=== PATIENT | female | born 1990 | race Caucasian/White ===

== ENCOUNTER 2019-03-11 17:01 | Emergency (ER) | payer OTHER ==
[2019-03-11 17:08] VITALS: BP 106/72
[2019-03-11] MEDS ORDERED: ONDANSETRON ODT 4 MG TABLET TL STA (17:36)
--- NOTE | 2019-03-11 17:39 | ED Physician Documentation ---
History of Present Illness - Stated complaint Stated Complaint: FEVER/VOMITING/AB PX - Chief complaint Chief Complaint: General - History obtained from History obtained from: Patient - History of Present Illness Timing: Today Pain level max: 4 Pain level now: 3 - Additonal information Additional information: 28-year-old female presents to the emergency department with vomiting today. Also a fever of 101 at home. Has a 2 and a 5-year-old at home. The 2-year-old had vomiting a few days ago followed by diarrhea. Nothing makes it better or worse. No recent travel, no recent abx. She is not having diarrhea currently Review of Systems Constitutional: reports: Fever Respiratory: denies: Cough GI: reports: Abdominal Pain (Crampy, diffuse), Nausea, Vomiting. denies: Diarrhea : denies: Dysuria, Frequency, Hesitancy Skin: denies: Rash Musculoskeletal: denies: Neck pain, Back pain PD PAST MEDICAL HISTORY - Past Medical History Past Medical History: No - Past Surgical History Past Surgical History: No - Present Medications Home Medications: Ambulatory Orders Medication Instructions Recorded Confirmed Ondansetron Odt [Zofran] 4 mg TL Q6H PRN #10 tablet 03/11/19 - Allergies Allergies/Adverse Reactions: Allergies Allergy/AdvReac Type Severity Reaction Status Date / Time No Known Drug Allergies Allergy Verified 03/11/19 17:08 - Living Situation Living Situation: reports: With family Living Arrangement: reports: At home - Social History Does the pt smoke?: No Does the pt have substance abuse?: No - Family History Family history: reports: Non contributory - Immunizations Immunizations are current?: Yes PD ED PE NORMAL - Vitals Vital signs reviewed: Yes - General General: Alert and oriented X 3, No acute distress, Well developed/nourished - HEENT HEENT: PERRL, Moist mucous membranes - Neck Neck: Supple, no meningeal sign - Cardiac Cardiac: RRR, Strong equal pulses - Respiratory Respiratory: No respiratory distress, Clear bilaterally - Abdomen Abdomen: Soft, Non tender, Non distended - Back Back: No CVA TTP, No spinal TTP - Derm Derm: Warm and dry - Extremities Extremities: No edema - Neuro Neuro: Alert and oriented X 3 - Psych Psych: Normal mood, Normal affect Results - Vitals Vitals: Vital Signs - 24 hr 03/11/19 17:04 Temperature 37.8 C H Heart Rate 96 Respiratory 16 Rate Blood Pressure 106/72 O2 Saturation 100 Oxygen O2 Source Room air - Labs Labs: Laboratory Tests 03/11/19 17:36 Urine Color YELLOW Urine Clarity CLEAR Urine pH 6.5 Ur Specific [place] 1.020 Urine Protein NEGATIVE Urine Glucose (UA) NEGATIVE Urine Ketones NEGATIVE Urine Occult Blood MODERATE H Urine Nitrite NEGATIVE Urine Bilirubin NEGATIVE Urine Urobilinogen 0.2 (NORMAL) Ur Leukocyte Esterase NEGATIVE Urine RBC 11-25 H Urine WBC 0-3 Ur Squamous Epith Cells RARE Squamous Urine Bacteria None Seen Ur Microscopic Review INDICATED Urine Culture Comments NOT INDICATED Urine HCG, Qual NEGATIVE PD MEDICAL DECISION MAKING - ED course Complexity details: reviewed results, re-evaluated patient, considered differential, d/w patient ED course: 28-year-old female, feels better after Zofran. Tolerating p.o. without difficulty. Likely caught this from her 2-year-old child. Abdomen is soft, nontender nondistended. No evidence of appendicitis, pyelonephritis. Patient counseled regarding signs and symptoms for which I believe and urgent re- evaluation would be necessary. Patient with good understanding of and agreement to plan and is comfortable going home at this time This document was made in part using voice recognition software. While efforts are made to proofread this document, sound alike and grammatical errors may occur. Departure - Departure Disposition: 01 Home, Self Care Clinical Impression: Viral gastroenteritis Condition: Good Instructions: ED Viral Syndrome Follow-Up: your,doctor in 3 days if not better [Other] Prescriptions: Ondansetron Odt [Zofran] 4 mg TL Q6H PRN #10 tablet PRN Reason: Nausea / Vomiting Comments: Follow-up with your doctor within 1 week if not better. Return if you worsen. Drink plenty fluids and rest. I suspect that you will start to have diarrhea tomorrow. Discharge Date/Time: 03/11/19 18:15
[2019-03-11 17:47] LABS: BILIRUBIN,URINE NEGATIVE (NEGATIVE); GLUCOSE, URINE (UA) NEGATIVE (NEGATIVE); KETONES,URINE (UA) NEGATIVE (NEGATIVE); LEUKOCYTE ESTERASE, URINE NEGATIVE (NEGATIVE); NITRITE,URINE NEGATIVE (NEGATIVE); OCCULT BLOOD,URINE MODERATE (NEGATIVE); PH,URINE 6.5 PH (5.0-7.5); PROTEIN,URINE NEGATIVE (NEGATIVE); UROBILINOGEN,URINE 0.2 (NORMAL) E.U./dL (NORMAL)
[2019-03-11 17:50] LABS: CLARITY,URINE CLEAR (CLEAR); HCG UR QUAL NEGATIVE
[2019-03-11 18:03] LABS: BACTERIA,URINE None Seen /HPF (None Seen); SQUAMOUS EPITHELIAL CELL,UR RARE Squamous (<= Few)
== END 2019-03-11 18:15 | disposition home or self-care (01) ==
LOC: ED 17:01
DX: A08.4 Viral intestinal infection, unspecified (principal)
CPT/HCPCS: 81001; 81025; 99283; Q0162; 81003; 87086

== ENCOUNTER 2019-03-23 22:14 | Outpatient (CLI) | payer OTHER ==
--- NOTE | 2019-03-24 12:02 | Ultrasound Report ---
Reason: PELVIC PAIN,ACUTE Procedure Date: 03/23/2019 Accession Number: [id number] / [id number] Procedure: US - Pelvic w/Transvaginal CPT Code: FULL RESULT: EXAM: PELVIC ULTRASOUND EXAM DATE: 03/23/2019 11:09 PM. CLINICAL HISTORY: Pelvic pain, acute. COMPARISON: None. TECHNIQUE: Realtime transabdominal pelvic scan performed to identify the uterus and adnexa and as an overview of other pelvic structures, followed by transvaginal scan to provide greater detail of the uterus and adnexa, with static image documentation. FINDINGS: Uterus: 8.3 x 5.8 x 4.5 cm, volume 113 cc. Anteverted position. Normal overall size and echotexture. Prominent uterine venous plexus was noted. Masses: None. Endometrium: 10 mm. Normal. Cervix: Unremarkable. Right Ovary: 3.5 x 2.3 x 2.3 cm, volume 9.6 cc. Normal echotexture and blood flow. Complex cyst measuring with irregular outline, suggestion of collapse measuring 1.5 x 0.9 x 0.9 cm was noted. Left Ovary: 3.2 x 1.4 x 1.8 cm, volume 4.2 cc. Normal echotexture and blood flow. Free Fluid: Small amount of free fluid. Other: None. IMPRESSION: Complex irregular-shaped cyst within the right ovary and a small amount of free fluid, possibly recent cyst rupture. RADIA ADDENDUM: 03/24/19 12:22 The uterus is retroverted.
== END 2019-03-23 22:15 | disposition home or self-care (01) ==
LOC: DI 22:14
PROVIDERS: ATTEND Registered Nurse
DX: N83.291 Other ovarian cyst, right side (principal); N85.4 Malposition of uterus
CPT/HCPCS: 76830; 76856

== ENCOUNTER 2019-08-31 10:00 | Outpatient (CLI) | payer OTHER | END 2019-08-31 23:59 | disposition home or self-care (01) | LOC: LAB.R 10:00 | PROVIDERS: ATTEND Physician Assistant | DX: J02.9 Acute pharyngitis, unspecified (principal) | CPT/HCPCS: 87070; 87077; 87275; 87276 ==

== ENCOUNTER 2019-11-19 14:34 | Outpatient (CLI) | payer OTHER ==
[2019-11-19 18:55] LABS: HGB - HEMOGLOBIN 12.6 g/dL (12.0-16.0); MEAN CORPUSCULAR HEMOGLOBIN 30.7 pg (27.0-31.0); MEAN CORPUSCULAR HGB CONC 33.2 g/dL (32.0-36.0); MEAN CORPUSCULAR VOLUME 92.2 fL (81.0-99.0); MEAN PLATELET VOLUME 11.3 fL (7.9-10.8); RED BLOOD COUNT 4.11 10^6/uL (4.20-5.40); RED CELL DISTRIBUTION WIDTH 12.6 % (12.0-15.0); WHITE BLOOD COUNT 7.5 x10^3/uL (4.8-10.8)
[2019-11-19 19:26] LABS: ALBUMIN 4.3 g/dL (3.2-5.5); ALBUMIN/GLOBULIN RATIO 1.5 (1.0-2.2); ALKALINE PHOSPHATASE 33 IU/L (42-121); ALT ALANINE AMINOTRANSFERASE 12 IU/L (10-60); AST ASPARTATE AMINOTRANSFERASE 17 IU/L (10-42); BILIRUBIN,TOTAL 0.9 mg/dL (0.2-1.0); BUN - BLOOD UREA NITROGEN 11 mg/dL (6-20); CALCIUM 9.1 mg/dL (8.5-10.3); CARBON DIOXIDE - CO2 25 mmol/L (21-32); CHLORIDE 106 mmol/L (101-111); CREATININE 0.7 mg/dL (0.4-1.0); GFR - MDRD 99 (>89); GLUCOSE 76 mg/dL (70-100); SODIUM 138 mmol/L (135-145); TOTAL PROTEIN 7.1 g/dL (6.7-8.2); URIC ACID 2.8 mg/dL (2.6-7.2)
[2019-11-19 19:34] LABS: CRP - C-REACTIVE PROTEIN < 1.0 mg/dL (0-1.0)
== END 2019-11-19 23:59 | disposition home or self-care (01) ==
LOC: LAB.WCP 14:34
PROVIDERS: ATTEND Family Medicine
DX: M25.50 Pain in unspecified joint (principal)
CPT/HCPCS: 36415; 80053; 84550; 85027; 85651; 86140

== ENCOUNTER 2019-12-08 08:00 | Outpatient (CLI) | payer OTHER ==
[2019-12-10 20:29] LABS: B. PARAPERTUSSIS DNA NOT DETECTED; SOURCE SWAB
== END 2019-12-08 23:59 | disposition home or self-care (01) ==
LOC: LAB.R 08:00
PROVIDERS: ATTEND Physician Assistant Medical
DX: J01.90 Acute sinusitis, unspecified (principal)
CPT/HCPCS: 87798

== ENCOUNTER 2019-12-09 07:41 | Outpatient (CLI) | payer OTHER | END 2019-12-09 07:42 | disposition EMS.NT | LOC: EMS 07:41 | PROVIDERS: ATTEND Surgery | DX: R00.2 Palpitations (principal); R06.00 Dyspnea, unspecified ==

== ENCOUNTER 2019-12-09 08:52 | Emergency (ER) | payer OTHER ==
[2019-12-09] MEDS ORDERED: SODIUM CHLORIDE 0.9% 999 ML IV STA (09:01)
[2019-12-09] MEDS ORDERED: MORPHINE 2 MG/ML CARPUJECT IVP STA (09:01)
[2019-12-09] MEDS ORDERED: ONDANSETRON 4 MG/2 ML VIAL IVP STA (09:02)
[2019-12-09 09:24] LABS: BASOPHILS % (AUTO) 0.5 %; EOSINOPHILS % (AUTO) 0.5 %; HGB - HEMOGLOBIN 12.2 g/dL (12.0-16.0); LYMPHOCYTES # (AUTO) 0.8 10^3/uL (1.5-3.5); LYMPHOCYTES % (AUTO) 21.9 %; MEAN CORPUSCULAR HEMOGLOBIN 31.7 pg (27.0-31.0); MEAN CORPUSCULAR HGB CONC 34.3 g/dL (32.0-36.0); MEAN CORPUSCULAR VOLUME 92.5 fL (81.0-99.0); MEAN PLATELET VOLUME 9.7 fL (7.9-10.8); MONOCYTES # (AUTO) 0.3 10^3/uL (0.0-1.0); MONOCYTES % (AUTO) 7.1 %; NEUTROPHILS # (AUTO) 2.5 10^3/uL (1.5-6.6); NEUTROPHILS % (AUTO) 69.7 %; PLT - PLATELET COUNT 183 10^3/uL (130-450); RED BLOOD COUNT 3.85 10^6/uL (4.20-5.40); RED CELL DISTRIBUTION WIDTH 12.1 % (12.0-15.0); WHITE BLOOD COUNT 3.7 x10^3/uL (4.8-10.8)
--- NOTE | 2019-12-09 09:24 | ED Physician Documentation ---
History of Present Illness - Stated complaint Stated Complaint: RHR - Chief complaint Chief Complaint: Cardiac - History obtained from History obtained from: Patient (28-year-old female generally healthy presented emergency room with shortness of breath that is associated with fast heart rate in the 120s that dropped down to the 50s. Patient has been taking Augmentin for sinus infection for last 4 days. Started this morning she has not been feeling well and check her Apple Watch, initially the heart rate was 120s and it dropped down to the 50s. As it dropped down, she feel shortness of breath, no nausea no vomiting. No syncope episode. Upon detailed questioning, she has not been feeling well for last 4 days coincidentally with the sinus infection, she also feels back pain and very mild chest discomfort that rated 3 out of 10.No long distance travel, no previous history of PE, no DVT in the past, not on control, cigarette smoking was 10 years ago) - History of Present Illness Timing: How many days ago (4) Review of Systems Ten Systems: 10 systems reviewed and negative Constitutional: reports: Reviewed and negative Eyes: reports: Reviewed and negative Ears: reports: Reviewed and negative Nose: reports: Reviewed and negative Throat: reports: Reviewed and negative Cardiac: reports: Chest pain / pressure, Palpitations Respiratory: reports: Dyspnea. denies: Hemoptysis GI: reports: Reviewed and negative : reports: Reviewed and negative Skin: reports: Reviewed and negative Musculoskeletal: reports: Reviewed and negative Neurologic: reports: Reviewed and negative Psychiatric: reports: Reviewed and negative Endocrine: reports: Reviewed and negative Immunocompromised: reports: Reviewed and negative PD PAST MEDICAL HISTORY - Past Medical History Past Medical History: No - Past Surgical History Past Surgical History: No - Present Medications Home Medications: Ambulatory Orders Medication Instructions Recorded Confirmed Ondansetron Odt [Zofran] 4 mg TL Q6H PRN #10 tablet 03/11/19 - Allergies Allergies/Adverse Reactions: Allergies Allergy/AdvReac Type Severity Reaction Status Date / Time No Known Drug Allergies Allergy Verified 03/11/19 17:08 - Social History Does the pt smoke?: No Smoking Status: Never smoker Does the pt drink ETOH?: Yes Does the pt have substance abuse?: No - Immunizations Immunizations are current?: Yes PD ED PE NORMAL - Vitals Vital signs reviewed: Yes - General General: Alert and oriented X 3, No acute distress - HEENT HEENT: PERRL - Neck Neck: Supple, no meningeal sign, No bony TTP, No adenopathy - Cardiac Cardiac: RRR, No murmur, No gallop, Strong equal pulses - Respiratory Respiratory: No respiratory distress, Clear bilaterally - Abdomen Abdomen: Normal bowel sounds, Soft, Non tender, Non distended - Back Back: No CVA TTP, No spinal TTP - Derm Derm: Warm and dry - Extremities Extremities: No deformity - Neuro Neuro: Alert and oriented X 3 - Psych Psych: Normal mood, Normal affect Results - Vitals Vitals: Vital Signs - 24 hr 12/09/19 12/09/19 12/09/19 09:00 09:07 10:14 Temperature 36.4 C L Heart Rate 73 71 69 Respiratory 18 16 13 Rate Blood Pressure 128/83 H 114/81 H 103/69 O2 Saturation 95 100 100 12/09/19 12:07 Temperature 36.9 C Heart Rate 72 Respiratory 12 Rate Blood Pressure 112/73 O2 Saturation 100 Oxygen O2 Source Room air - EKG (time done) No standard instances Rate: Rate (enter#) (67) Rhythm: NSR [place]: Normal Intervals: Normal [place] QRS: Normal Ischemia: Normal ST segments - Labs Labs: Laboratory Tests 12/09/19 12/09/19 12/09/19 09:15 09:15 09:15 WBC 3.7 L RBC 3.85 L Hgb 12.2 Hct 35.6 L MCV 92.5 MCH 31.7 H MCHC 34.3 RDW 12.1 Plt Count 183 MPV 9.7 Neut # (Auto) 2.5 Lymph # (Auto) 0.8 L [place] # (Auto) 0.3 Eos # (Auto) 0.0 Baso # (Auto) 0.0 Absolute Nucleated RBC 0.00 Nucleated RBC % 0.0 PT 13.9 H INR 1.2 APTT 32.2 D-Dimer < 200.0 L Sodium 139 Potassium 4.0 Chloride 103 Carbon Dioxide 26 Anion Gap 10.0 BUN 9 Creatinine 0.7 Estimated GFR (MDRD) 99 Glucose 94 Calcium 8.8 Total Bilirubin 1.5 H AST 14 ALT 10 Alkaline Phosphatase 33 L Troponin I High Sens B-Natriuretic Peptide Total Protein 6.6 L Albumin 4.1 Globulin 2.5 Albumin/Globulin Ratio 1.6 Lipase 29 Urine Color Urine Clarity Urine pH Ur Specific [place] Urine Protein Urine Glucose (UA) Urine Ketones Urine Occult Blood Urine Nitrite Urine Bilirubin Urine Urobilinogen Ur Leukocyte Esterase Ur Microscopic Review Urine Culture Comments Urine HCG, Qual 12/09/19 12/09/19 12/09/19 09:15 09:15 11:26 WBC RBC Hgb Hct MCV MCH MCHC RDW Plt Count MPV Neut # (Auto) Lymph # (Auto) [place] # (Auto) Eos # (Auto) Baso # (Auto) Absolute Nucleated RBC Nucleated RBC % PT INR APTT D-Dimer Sodium Potassium Chloride Carbon Dioxide Anion Gap BUN Creatinine Estimated GFR (MDRD) Glucose Calcium Total Bilirubin AST ALT Alkaline Phosphatase Troponin I High Sens < 2.3 L B-Natriuretic Peptide 16 Total Protein Albumin Globulin Albumin/Globulin Ratio Lipase Urine Color YELLOW Urine Clarity CLEAR Urine pH 7.0 Ur Specific [place] <=1.005 Urine Protein NEGATIVE Urine Glucose (UA) NEGATIVE Urine Ketones 15 H Urine Occult Blood NEGATIVE Urine Nitrite NEGATIVE Urine Bilirubin NEGATIVE Urine Urobilinogen 0.2 (NORMAL) Ur Leukocyte Esterase NEGATIVE Ur Microscopic Review NOT INDICATED Urine Culture Comments NOT INDICATED Urine HCG, Qual NEGATIVE - Rads (name of study) No standard instances Radiology: Final report received (Normal chest x-ray) PD MEDICAL DECISION MAKING - ED course Complexity details: d/w patient, d/w family ED course: Patient is reassessed at 12:00 and disclosed normal laboratory finding including electrolyte, CBC, chemistry, thyroid function, magnesium level, everything seems to be normal. I am not sure the Etiology of thetransient tachycardic episode that developed just prior to arrival.Over last 3 hours, patient has been monitor and there is no such event. This is disclosed to the patient. She is assured. She is been initiated on Augmentin for sinusitis, I told her to continue finishing the course and monitor the heart rate. She understood and agreed. She is asked to follow with her primary care doctor in the next 5 to 7 days for reassessment. If there is another episode of tachycardia, return to the emergency room for further management. Departure - Departure Disposition: 01 Home, Self Care Clinical Impression: Tachycardia, paroxysmal Condition: Stable Instructions: Tachycardia Follow-Up: Caitlyn Corral PA [Primary Care Provider] - Comments: Please continue monitoring your heart rate. Resume your Augmentin. Follow-up with your primary care doctor. If there is further episodes of fast heartbeat, please return to the emergency room for further evaluation.
[2019-12-09 09:34] LABS: D-DIMER < 200.0 ng/mL (200.0-255.0)
[2019-12-09 09:36] LABS: ALBUMIN 4.1 g/dL (3.2-5.5); ALBUMIN/GLOBULIN RATIO 1.6 (1.0-2.2); BILIRUBIN,TOTAL 1.5 mg/dL (0.2-1.0); CALCIUM 8.8 mg/dL (8.5-10.3); CREATININE 0.7 mg/dL (0.4-1.0); TOTAL PROTEIN 6.6 g/dL (6.7-8.2)
[2019-12-09 09:38] LABS: INR 1.2 (0.8-1.2); PT - PROTHROMBIN TIME 13.9 secs (9.9-12.6)
[2019-12-09 09:47] LABS: PARTIAL THROMBOPLASTIN TIME 32.2 secs (24.9-33.3)
--- NOTE | 2019-12-09 10:01 | XRAY Report ---
Reason: palpitation Procedure Date: 12/09/2019 Accession Number: [id number] / [id number] Procedure: XR - Chest 2 View X-Ray CPT Code: 11359 Final Report FULL RESULT: EXAM: CHEST RADIOGRAPHY EXAM DATE: 12/09/2019 09:38 AM. CLINICAL HISTORY: Palpitation. COMPARISON: None. TECHNIQUE: 2 views. FINDINGS: Lungs/Pleura: No evidence of lobar consolidation or effusion. Lungs are well expanded. There is a 1.0 cm focal opacity projecting over the left anterior fourth rib. No pneumothorax. Mediastinum: Heart and mediastinal contours are unremarkable. Other: None. IMPRESSION: 1. Normal lung volumes and heart size. 2. No acute intrathoracic plain film abnormality. 3. On frontal view, is a 1 cm focal opacity projecting over the left anterior fourth rib. This probably represents granuloma, bone island, or something extrinsic to the patient. RADIA
[2019-12-09 11:45] LABS: BILIRUBIN,URINE NEGATIVE (NEGATIVE); GLUCOSE, URINE (UA) NEGATIVE (NEGATIVE); KETONES,URINE (UA) 15 mg/dL (NEGATIVE); LEUKOCYTE ESTERASE, URINE NEGATIVE (NEGATIVE); NITRITE,URINE NEGATIVE (NEGATIVE); OCCULT BLOOD,URINE NEGATIVE (NEGATIVE); PROTEIN,URINE NEGATIVE (NEGATIVE); UROBILINOGEN,URINE 0.2 (NORMAL) E.U./dL (NORMAL)
[2019-12-09 11:46] LABS: CLARITY,URINE CLEAR (CLEAR)
[2019-12-09 11:49] LABS: HCG UR QUAL NEGATIVE
[2019-12-09 12:08] VITALS: BP 112/73
== END 2019-12-09 12:35 | disposition home or self-care (01) ==
LOC: EDUNIT# → ED 08:52
DX: I47.9 Paroxysmal tachycardia, unspecified (principal); R07.89 Other chest pain; R06.02 Shortness of breath; J32.9 Chronic sinusitis, unspecified
CPT/HCPCS: 36415; 71046; 80053; 81001; 81003; 81025; 83690; 83880; 84484; 85025; 85379; 85610; 85730; 87086; 93005; 96361; 96374; 99285

== ENCOUNTER 2019-12-10 14:10 | Outpatient (CLI) | payer OTHER | END 2019-12-10 23:59 | disposition home or self-care (01) | LOC: LAB.WCP 14:10 | PROVIDERS: ATTEND Family Medicine | DX: I47.9 Paroxysmal tachycardia, unspecified (principal) | CPT/HCPCS: 36415; 83735; 84443 ==

== ENCOUNTER 2019-12-11 08:46 | Emergency (ER) | payer OTHER ==
--- NOTE | 2019-12-11 09:26 | ED Physician Documentation ---
History of Present Illness - Stated complaint Stated Complaint: CHEST PAIN, SOA - Chief complaint Chief Complaint: Cardiac - History obtained from History obtained from: Patient, Family - History of Present Illness Timing: How many days ago (3) - Additonal information Additional information: 29-year-old female has been treated with a amoxicillin for a sinus infection has developed some rapid heart rate that is periodic in nature and has given her some issues with chest pain. She was seen in the emergency department here 2 days ago and had a work-up done which was generally negative. No episodes of SVT were uncovered during the visit. The patient does have an apple watch which is giving her a heart rate when she is symptomatic and ranging from 120-180. These episodes are brief in nature lasting minutes. She does have episodes associated with getting up. Review of Systems Constitutional: reports: Myalgias, Fatigue. denies: Fever Eyes: denies: Decreased vision Ears: denies: Ear pain Nose: reports: Rhinorrhea / runny nose, Congestion, Sinus pressure / pain Throat: denies: Sore throat Cardiac: reports: Chest pain / pressure, Palpitations. denies: Pedal edema, Calf pain Respiratory: reports: Dyspnea, Cough GI: denies: Abdominal Pain, Nausea, Vomiting : denies: Dysuria, Frequency PD PAST MEDICAL HISTORY - Past Surgical History Past Surgical History: No - Present Medications Home Medications: Ambulatory Orders Medication Instructions Recorded Confirmed Ondansetron Odt [Zofran] 4 mg TL Q6H PRN #10 tablet 03/11/19 Ondansetron Odt [Zofran] 4 mg TL Q6H PRN #10 tablet 12/11/19 Sucralfate [Carafate] 1 gm PO ACHS #60 tablet 12/11/19 - Allergies Allergies/Adverse Reactions: Allergies Allergy/AdvReac Type Severity Reaction Status Date / Time No Known Drug Allergies Allergy Verified 03/11/19 17:08 - Social History Does the pt smoke?: No Smoking Status: Never smoker Does the pt drink ETOH?: Yes Does the pt have substance abuse?: No - Immunizations Immunizations are current?: Yes PD ED PE NORMAL - Vitals Vital signs reviewed: Yes (normal ) - General General: Alert and oriented X 3, No acute distress, Well developed/nourished - HEENT HEENT: Atraumatic, PERRL, EOMI - Neck Neck: Supple, no meningeal sign, No bony TTP - Cardiac Cardiac: RRR, No murmur - Respiratory Respiratory: No respiratory distress, Clear bilaterally - Abdomen Abdomen: Normal bowel sounds, Soft, Non tender, Non distended, No organomegaly - Back Back: No CVA TTP, No spinal TTP - Derm Derm: Normal color, Warm and dry, No rash - Extremities Extremities: No deformity, No edema - Neuro Neuro: Alert and oriented X 3, 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, No motor deficit, No sensory deficit, Normal speech Eye Opening: Spontaneous Motor: Obeys Commands Verbal: Oriented GCS Score: 15 - Psych Psych: Normal mood, Normal affect Results - Vitals Vitals: Vital Signs - 24 hr 12/11/19 12/11/19 12/11/19 08:57 09:29 10:42 Temperature 36.7 C Heart Rate 87 81 82 Respiratory 18 18 18 Rate Blood Pressure 120/76 108/78 115/82 H O2 Saturation 100 100 100 Oxygen O2 Source Room air - EKG (time done) 0857 Rate: Rate (enter#) (82) Rhythm: NSR Ischemia: Normal ST segments Compare to prior EKG: Changed from prior EKG (SPT 12-09-2019 rate has increased) Computer interpretation: Agree with computer - Labs Labs: Laboratory Tests 12/11/19 12/11/19 12/11/19 09:20 09:20 09:20 WBC 5.8 RBC 4.21 Hgb 13.2 Hct 38.0 MCV 90.3 MCH 31.4 H MCHC 34.7 RDW 12.1 Plt Count 216 MPV 10.4 Neut # (Auto) 4.4 Lymph # (Auto) 1.0 L [place] # (Auto) 0.3 Eos # (Auto) 0.0 Baso # (Auto) 0.0 Absolute Nucleated RBC 0.00 Nucleated RBC % 0.0 D-Dimer < 200.0 L Sodium 139 Potassium 3.7 Chloride 102 Carbon Dioxide 25 Anion Gap 12.0 BUN 7 Creatinine 0.7 Estimated GFR (MDRD) 98 Glucose 92 Calcium 9.3 Total Bilirubin 1.6 H AST 14 ALT < 10 L Alkaline Phosphatase 35 L Total Protein 7.5 Albumin 4.5 Globulin 3.0 Albumin/Globulin Ratio 1.5 Lipase 30 Urine Color Urine Clarity Urine pH Ur Specific [place] Urine Protein Urine Glucose (UA) Urine Ketones Urine Occult Blood Urine Nitrite Urine Bilirubin Urine Urobilinogen Ur Leukocyte Esterase Ur Microscopic Review Urine Culture Comments Urine HCG, Qual 12/11/19 09:50 WBC RBC Hgb Hct MCV MCH MCHC RDW Plt Count MPV Neut # (Auto) Lymph # (Auto) [place] # (Auto) Eos # (Auto) Baso # (Auto) Absolute Nucleated RBC Nucleated RBC % D-Dimer Sodium Potassium Chloride Carbon Dioxide Anion Gap BUN Creatinine Estimated GFR (MDRD) Glucose Calcium Total Bilirubin AST ALT Alkaline Phosphatase Total Protein Albumin Globulin Albumin/Globulin Ratio Lipase Urine Color YELLOW Urine Clarity CLEAR Urine pH 7.0 Ur Specific [place] <=1.005 Urine Protein NEGATIVE Urine Glucose (UA) NEGATIVE Urine Ketones 40 H Urine Occult Blood NEGATIVE Urine Nitrite NEGATIVE Urine Bilirubin NEGATIVE Urine Urobilinogen 0.2 (NORMAL) Ur Leukocyte Esterase NEGATIVE Ur Microscopic Review NOT INDICATED Urine Culture Comments NOT INDICATED Urine HCG, Qual NEGATIVE - Rads (name of study) cxr Radiology: Prelim report reviewed (Impression: No acute disease.), EMP read indepedently, See rad report Procedures - IVC sono (time) 0920 Bedside IVC sono: IVC measures (cm) (1.23), IVC collapsed c insp (cm) (complete), Dehydration (est 1 liter deficit) PD MEDICAL DECISION MAKING - ED course Complexity details: reviewed results, re-evaluated patient, considered differential, d/w patient, d/w family ED course: 29-year-old female being treated for sinusitis has paroxysmal tachycardia and it does appear to be orthostatic. She is found to be mildly dehydrated on interrogation the inferior vena cava. She is administered saline and a chest x- ray and laboratory values are obtained.Chest x-ray and laboratory studies are unremarkable. She is administered the saline with improvement and when she stands she does still have a transient elevation in her heart rate up into the 120 range. She has been having some issues with her stomach for the past 2 months and she has some nausea when she goes to eat. She was prescribed some omeprazole yesterday which she has not started. I have encouraged patient to increase her fluids we have given her a dose of dexamethasone to complete her course with the sinusitis and I have asked her to follow-up with her primary. She is expecting to have an echocardiogram done at some point. Our findings today indicate the patient is dehydrated and we have provided some hydration but she continues to have some orthostasis.For her stomach we will be providing some Carafate and Zofran. She has been prescribed omeprazole by her primary. Departure - Departure Disposition: 01 Home, Self Care Clinical Impression: Dehydration Gastritis Qualifiers: Gastritis type: unspecified gastritis Chronicity: acute Gastritis bleeding: without bleeding Qualified Code(s): K29.00 - Acute gastritis without bleeding Condition: Stable Instructions: ED Dehydration, ED PUD Vs Gastritis Follow-Up: Caitlyn Corral PA [Primary Care Provider] - Prescriptions: Ondansetron Odt [Zofran] 4 mg TL Q6H PRN #10 tablet PRN Reason: Nausea / Vomiting Sucralfate [Carafate] 1 gm PO ACHS #60 tablet
[2019-12-11] MEDS ORDERED: SODIUM CHLORIDE 0.9% 1,000 ML IV ONE (09:27)
[2019-12-11 09:35] LABS: BASOPHILS % (AUTO) 0.3 %; EOSINOPHILS % (AUTO) 0.2 %; HGB - HEMOGLOBIN 13.2 g/dL (12.0-16.0); LYMPHOCYTES % (AUTO) 17.8 %; MEAN CORPUSCULAR HEMOGLOBIN 31.4 pg (27.0-31.0); MEAN CORPUSCULAR HGB CONC 34.7 g/dL (32.0-36.0); MEAN CORPUSCULAR VOLUME 90.3 fL (81.0-99.0); MEAN PLATELET VOLUME 10.4 fL (7.9-10.8); MONOCYTES # (AUTO) 0.3 10^3/uL (0.0-1.0); MONOCYTES % (AUTO) 5.8 %; NEUTROPHILS # (AUTO) 4.4 10^3/uL (1.5-6.6); NEUTROPHILS % (AUTO) 75.6 %; PLT - PLATELET COUNT 216 10^3/uL (130-450); RED BLOOD COUNT 4.21 10^6/uL (4.20-5.40); RED CELL DISTRIBUTION WIDTH 12.1 % (12.0-15.0); WHITE BLOOD COUNT 5.8 x10^3/uL (4.8-10.8)
--- NOTE | 2019-12-11 09:47 | XRAY Report ---
Reason: chough soa Procedure Date: 12/11/2019 Accession Number: [id number] / [id number] Procedure: XR - Chest 2 View X-Ray CPT Code: 36813 Final Report FULL RESULT: EXAM: CHEST RADIOGRAPHY EXAM DATE: 12/11/2019 09:40 AM. CLINICAL HISTORY: Cough, short of breath. COMPARISON: CHEST 2 VIEW 12/09/2019 9:28 AM. TECHNIQUE: 2 views. FINDINGS: Lungs/Pleura: Calcified granuloma on the left. Otherwise clear. No effusion or pneumothorax. Mediastinum: Heart and mediastinal contours are unremarkable. Upper lobe vessels not distended. Other: None. IMPRESSION: No acute disease. RADIA
[2019-12-11 09:49] LABS: ALBUMIN 4.5 g/dL (3.2-5.5); ALBUMIN/GLOBULIN RATIO 1.5 (1.0-2.2); ALKALINE PHOSPHATASE 35 IU/L (42-121); ALT ALANINE AMINOTRANSFERASE < 10 IU/L (10-60); AST ASPARTATE AMINOTRANSFERASE 14 IU/L (10-42); BILIRUBIN,TOTAL 1.6 mg/dL (0.2-1.0); BUN - BLOOD UREA NITROGEN 7 mg/dL (6-20); CALCIUM 9.3 mg/dL (8.5-10.3); CARBON DIOXIDE - CO2 25 mmol/L (21-32); CHLORIDE 102 mmol/L (101-111); CREATININE 0.7 mg/dL (0.4-1.0); GFR - MDRD 98 (>89); GLUCOSE 92 mg/dL (70-100); LIPASE 30 U/L (22-51); SODIUM 139 mmol/L (135-145); TOTAL PROTEIN 7.5 g/dL (6.7-8.2)
[2019-12-11 09:57] LABS: BILIRUBIN,URINE NEGATIVE (NEGATIVE); GLUCOSE, URINE (UA) NEGATIVE (NEGATIVE); KETONES,URINE (UA) 40 mg/dL (NEGATIVE); LEUKOCYTE ESTERASE, URINE NEGATIVE (NEGATIVE); NITRITE,URINE NEGATIVE (NEGATIVE); OCCULT BLOOD,URINE NEGATIVE (NEGATIVE); PROTEIN,URINE NEGATIVE (NEGATIVE); UROBILINOGEN,URINE 0.2 (NORMAL) E.U./dL (NORMAL)
[2019-12-11 09:58] LABS: CLARITY,URINE CLEAR (CLEAR); HCG UR QUAL NEGATIVE
[2019-12-11] MEDS ORDERED: DEXAMETHASONE 10 MG/ML VIAL IVP STA (10:51)
[2019-12-11] MEDS ORDERED: ACETAMINOPHEN 325 MG TABLET PO STA (11:05)
[2019-12-11 11:14] VITALS: BP 115/82
== END 2019-12-11 11:22 | disposition home or self-care (01) ==
LOC: ED 08:46
DX: I47.9 Paroxysmal tachycardia, unspecified (principal); E86.0 Dehydration; K29.00 Acute gastritis without bleeding; J32.9 Chronic sinusitis, unspecified
CPT/HCPCS: 36415; 71046; 80053; 81003; 81025; 83690; 85025; 85379; 93005; 96361; 96374; 99284; A9270; 81001; 87086

== ENCOUNTER 2019-12-15 12:57 | Outpatient (CLI) | payer OTHER | END 2019-12-15 12:58 | disposition home or self-care (01) | LOC: DI 12:57 | PROVIDERS: ATTEND Family Medicine | DX: I47.9 Paroxysmal tachycardia, unspecified (principal) | CPT/HCPCS: 93306 ==

== ENCOUNTER 2019-12-17 08:00 | Outpatient (CLI) | payer OTHER ==
[2019-12-17 20:33] LABS: CANDIDA GROUP DNA NEGATIVE (NEGATIVE); CANDIDA KRUSEI DNA NEGATIVE (NEGATIVE); TRICHOMONAS VAGINALIS DNA NEGATIVE (NEGATIVE)
== END 2019-12-17 23:59 | disposition home or self-care (01) ==
LOC: LAB.R 08:00
PROVIDERS: ATTEND Obstetrics & Gynecology
DX: N89.8 Other specified noninflammatory disorders of vagina (principal)
CPT/HCPCS: 87661; 87801

== ENCOUNTER 2019-12-18 19:51 | Outpatient (CLI) | payer OTHER | END 2019-12-18 19:52 | disposition critical access hospital (66) | LOC: EMS 19:51 | PROVIDERS: ATTEND Surgery | DX: R68.89 Other general symptoms and signs (principal) | CPT/HCPCS: A0425; A0429 ==

== ENCOUNTER 2019-12-18 20:08 | Emergency (ER) | payer OTHER ==
--- NOTE | 2019-12-18 20:24 | ED Physician Documentation ---
History of Present Illness - Stated complaint Stated Complaint: CHEST PRESSURE - Chief complaint Chief Complaint: Cardiac - History obtained from History obtained from: Patient (The patient is a 29-year-old female reports that she has had a multitude of symptoms off and on since October to include headache neck pain chest pain chest pressure shortness of breath body aches fatigue, she reports she just finished her second round of antibiotics for sinusitis. she has been seen by her pcp multiple times over the last 2-3 months. She is complaining primarily of head pressure and neck pain today and low-grade fevers off and on for the past 2 weeks but worse today. She denies any rashes she reports she is up-to-date on all of her immunizations. She denies any syncopal episodes or dysuria or abdominal pain she denies any history of pulmo nary embolism or DVT. Currently she reports that she is being monitored for palpitations. The patient's mother is with the patient and reports that she flew in from [place] to assist with the patient and her 2 children at home.) Review of Systems Constitutional: reports: Fever, Chills, Myalgias, Fatigue Eyes: reports: Reviewed and negative Ears: reports: Reviewed and negative Nose: reports: Reviewed and negative Throat: reports: Other (neck pain) Cardiac: reports: Chest pain / pressure, Palpitations Respiratory: reports: Reviewed and negative GI: reports: Reviewed and negative : reports: Reviewed and negative Skin: reports: Reviewed and negative Musculoskeletal: reports: Neck pain Neurologic: reports: Headache Psychiatric: reports: Reviewed and negative Endocrine: reports: Reviewed and negative Immunocompromised: reports: Reviewed and negative PD PAST MEDICAL HISTORY - Past Surgical History Past Surgical History: No - Present Medications Home Medications: Ambulatory Orders Medication Instructions Recorded Confirmed Ondansetron Odt [Zofran] 4 mg TL Q6H PRN #10 tablet 03/11/19 Ondansetron Odt [Zofran] 4 mg TL Q6H PRN #10 tablet 12/11/19 Sucralfate [Carafate] 1 gm PO ACHS #60 tablet 12/11/19 - Allergies Allergies/Adverse Reactions: Allergies Allergy/AdvReac Type Severity Reaction Status Date / Time No Known Drug Allergies Allergy Verified 12/18/19 20:17 - Social History Does the pt smoke?: No Smoking Status: Never smoker Does the pt drink ETOH?: Yes Does the pt have substance abuse?: No - Immunizations Immunizations are current?: Yes PD ED PE NORMAL - Vitals Vital signs reviewed: Yes - General General: Alert and oriented X 3, No acute distress, Well developed/nourished - HEENT HEENT: Atraumatic, PERRL, EOMI, Ears normal, Moist mucous membranes, Pharynx benign, Dentition benign - Neck Neck: Supple, no meningeal sign, No bony TTP, No adenopathy, Thyroid normal, No JVD, No bruit - Cardiac Cardiac: RRR, Strong equal pulses - Respiratory Respiratory: No respiratory distress, Clear bilaterally - Abdomen Abdomen: Normal bowel sounds, Soft, Non tender, Non distended, No organomegaly - Back Back: No CVA TTP, No spinal TTP - Derm Derm: Normal color, Warm and dry, No rash - Extremities Extremities: No deformity, No tenderness to palpate, Normal ROM s pain, No edema, No calf tenderness / cord - Neuro Neuro: Alert and oriented X 3, facility assistant 2-12 intact, No motor deficit, No sensory deficit, Normal speech - Psych Psych: Normal mood, Normal affect Results - Vitals Vitals: Vital Signs - 24 hr 12/18/19 12/18/19 20:10 22:00 Temperature 36.8 C Heart Rate 79 75 Respiratory 18 15 Rate Blood Pressure 124/87 H 115/80 O2 Saturation 100 100 Oxygen O2 Source Room air - EKG (time done) 75 Rhythm: NSR [place]: Normal Intervals: Normal IN QRS: Normal Ischemia: Normal ST segments Computer interpretation: Agree with computer - Labs Labs: Microbiology 12/18/19 21:45 CSF Culture - Preliminary Cerebral Spinal Fluid Laboratory Tests 12/18/19 12/18/19 12/18/19 21:02 21:02 21:02 WBC 6.1 RBC 4.03 L Hgb 12.2 Hct 36.1 L MCV 89.6 MCH 30.3 MCHC 33.8 RDW 12.3 Plt Count 193 MPV 10.3 Neut # (Auto) 3.5 Lymph # (Auto) 1.9 [place] # (Auto) 0.6 Eos # (Auto) 0.0 Baso # (Auto) 0.0 Absolute Nucleated RBC 0.00 Nucleated RBC % 0.0 PT INR APTT Sodium 137 Potassium 3.3 L Chloride 101 Carbon Dioxide 25 Anion Gap 11.0 BUN 10 Creatinine 0.6 Estimated GFR (MDRD) 117 Glucose 86 Calcium 9.0 Total Creatine Kinase 26 Troponin I High Sens TSH 1.38 Urine Color Urine Clarity Urine pH Ur Specific [place] Urine Protein Urine Glucose (UA) Urine Ketones Urine Occult Blood Urine Nitrite Urine Bilirubin Urine Urobilinogen Ur Leukocyte Esterase Ur Microscopic Review Urine Culture Comments Urine HCG, Qual CSF Color CSF Clarity Xanthrochromic CSF WBC CSF RBC CSF Cell Count Tube # CSF Glucose CSF Total Protein Urine Opiates Screen Ur Oxycodone Screen Urine Methadone Screen Ur Propoxyphene Screen Ur Barbiturates Screen Ur Tricyclics Screen Ur Phencyclidine Scrn Ur Amphetamine Screen U Methamphetamines Scrn U Benzodiazepines Scrn Urine Cocaine Screen U Cannabinoids Screen Ethyl Alcohol < 5.0 Influenza A (Rapid) Influenza B (Rapid) 12/18/19 12/18/19 12/18/19 21:02 21:05 21:37 WBC RBC Hgb Hct MCV MCH MCHC RDW Plt Count MPV Neut # (Auto) Lymph # (Auto) [place] # (Auto) Eos # (Auto) Baso # (Auto) Absolute Nucleated RBC Nucleated RBC % PT 14.2 H INR 1.3 H APTT 30.8 Sodium Potassium Chloride Carbon Dioxide Anion Gap BUN Creatinine Estimated GFR (MDRD) Glucose Calcium Total Creatine Kinase Troponin I High Sens < 2.3 L TSH Urine Color YELLOW Urine Clarity CLEAR Urine pH 6.0 Ur Specific [place] <=1.005 Urine Protein NEGATIVE Urine Glucose (UA) NEGATIVE Urine Ketones 15 H Urine Occult Blood NEGATIVE Urine Nitrite NEGATIVE Urine Bilirubin NEGATIVE Urine Urobilinogen 0.2 (NORMAL) Ur Leukocyte Esterase NEGATIVE Ur Microscopic Review NOT INDICATED Urine Culture Comments NOT INDICATED Urine HCG, Qual CSF Color CSF Clarity Xanthrochromic CSF WBC CSF RBC CSF Cell Count Tube # CSF Glucose CSF Total Protein Urine Opiates Screen NEGATIVE Ur Oxycodone Screen NEGATIVE Urine Methadone Screen NEGATIVE Ur Propoxyphene Screen NEGATIVE Ur Barbiturates Screen NEGATIVE Ur Tricyclics Screen NEGATIVE Ur Phencyclidine Scrn NEGATIVE Ur Amphetamine Screen NEGATIVE U Methamphetamines Scrn NEGATIVE U Benzodiazepines Scrn NEGATIVE Urine Cocaine Screen NEGATIVE U Cannabinoids Screen NEGATIVE Ethyl Alcohol Influenza A (Rapid) Influenza B (Rapid) 12/18/19 12/18/19 12/18/19 21:37 21:45 23:10 WBC RBC Hgb Hct MCV MCH MCHC RDW Plt Count MPV Neut # (Auto) Lymph # (Auto) [place] # (Auto) Eos # (Auto) Baso # (Auto) Absolute Nucleated RBC Nucleated RBC % PT INR APTT Sodium Potassium Chloride Carbon Dioxide Anion Gap BUN Creatinine Estimated GFR (MDRD) Glucose Calcium Total Creatine Kinase Troponin I High Sens TSH Urine Color Urine Clarity Urine pH Ur Specific [place] <1.005 Urine Protein Urine Glucose (UA) Urine Ketones Urine Occult Blood Urine Nitrite Urine Bilirubin Urine Urobilinogen Ur Leukocyte Esterase Ur Microscopic Review Urine Culture Comments Urine HCG, Qual NEGATIVE CSF Color COLORLESS CSF Clarity CLEAR Xanthrochromic ABSENT CSF WBC 2 CSF RBC 0 CSF Cell Count Tube # CSF TUBE# 3 CSF Glucose 55 CSF Total Protein 17 Urine Opiates Screen Ur Oxycodone Screen Urine Methadone Screen Ur Propoxyphene Screen Ur Barbiturates Screen Ur Tricyclics Screen Ur Phencyclidine Scrn Ur Amphetamine Screen U Methamphetamines Scrn U Benzodiazepines Scrn Urine Cocaine Screen U Cannabinoids Screen Ethyl Alcohol Influenza A (Rapid) Negative Influenza B (Rapid) Negative PD MEDICAL DECISION MAKING - ED course Complexity details: d/w patient, d/w family, other (patient hx and exam are concerning for possible viral / aseptic meningitis. CSF shows no signs of infection. CTH negative, EKG, TROP, CXR all neg. HCG Neg. patient and mother updated and are agreeable to dc home and close f/u w her pcp.) Departure - Departure Disposition: 01 Home, Self Care Clinical Impression: Viral syndrome Headache Qualifiers: Headache type: other headache syndrome Qualified Code(s): G44.89 - Other headache syndrome Condition: Good Instructions: ED Viral Syndrome Follow-Up: Caitlyn Corral PA [Primary Care Provider] - Tomorrow Comments: hydrate well, follow up with your primary care provider tomorrow, take tylenol as needed for headache.
[2019-12-18] MEDS ORDERED: SODIUM CHLORIDE 0.9% 1,000 ML IV ONE (20:53)
[2019-12-18 21:12] LABS: BASOPHILS % (AUTO) 0.3 %; EOSINOPHILS % (AUTO) 0.7 %; HGB - HEMOGLOBIN 12.2 g/dL (12.0-16.0); LYMPHOCYTES # (AUTO) 1.9 10^3/uL (1.5-3.5); LYMPHOCYTES % (AUTO) 31.5 %; MEAN CORPUSCULAR HEMOGLOBIN 30.3 pg (27.0-31.0); MEAN CORPUSCULAR HGB CONC 33.8 g/dL (32.0-36.0); MEAN CORPUSCULAR VOLUME 89.6 fL (81.0-99.0); MEAN PLATELET VOLUME 10.3 fL (7.9-10.8); MONOCYTES # (AUTO) 0.6 10^3/uL (0.0-1.0); MONOCYTES % (AUTO) 9.4 %; NEUTROPHILS # (AUTO) 3.5 10^3/uL (1.5-6.6); NEUTROPHILS % (AUTO) 57.8 %; PLT - PLATELET COUNT 193 10^3/uL (130-450); RED BLOOD COUNT 4.03 10^6/uL (4.20-5.40); RED CELL DISTRIBUTION WIDTH 12.3 % (12.0-15.0); WHITE BLOOD COUNT 6.1 x10^3/uL (4.8-10.8)
[2019-12-18 21:19] LABS: INR 1.3 (0.8-1.2); PT - PROTHROMBIN TIME 14.2 secs (9.9-12.6)
[2019-12-18 21:26] LABS: PARTIAL THROMBOPLASTIN TIME 30.8 secs (24.9-33.3)
[2019-12-18 21:29] LABS: BUN - BLOOD UREA NITROGEN 10 mg/dL (6-20); CARBON DIOXIDE - CO2 25 mmol/L (21-32); CHLORIDE 101 mmol/L (101-111); CK- CREATINE KINASE 26 IU/L (22-269); CREATININE 0.6 mg/dL (0.4-1.0); GFR - MDRD 117 (>89); GLUCOSE 86 mg/dL (70-100); SODIUM 137 mmol/L (135-145)
[2019-12-18 21:41] LABS: MUDS CUTOFF CONCENTRATIONS CUTOFF CONC BELOW:
[2019-12-18 21:44] LABS: BILIRUBIN,URINE NEGATIVE (NEGATIVE); GLUCOSE, URINE (UA) NEGATIVE (NEGATIVE); KETONES,URINE (UA) 15 mg/dL (NEGATIVE); LEUKOCYTE ESTERASE, URINE NEGATIVE (NEGATIVE); NITRITE,URINE NEGATIVE (NEGATIVE); OCCULT BLOOD,URINE NEGATIVE (NEGATIVE); PROTEIN,URINE NEGATIVE (NEGATIVE); UROBILINOGEN,URINE 0.2 (NORMAL) E.U./dL (NORMAL)
--- NOTE | 2019-12-18 21:50 | ED Physician Documentation ---
ED Addendum - Addendum Addendum: 12/18/19 21:49 I performed a lumbar puncture on this patient after written informed consent after discussion of the risks including headache, bleeding, infection pump, mom was also at the bedside. The patient was prepped with iodine and draped and in a sitting position at the L3-L4 interface she was numbed with 4 mL of lidocaine and then a 22-gauge spinal needle was used to access the cerebrospinal fluid without difficulty and 4 mL of clear cerebrospinal fluid was sent to the lab without immediate complication. Otherwise I was not involved in her care.
[2019-12-18 21:54] LABS: CLARITY,URINE CLEAR (CLEAR)
--- NOTE | 2019-12-18 21:56 | XRAY Report ---
Reason: chest pressure Procedure Date: 12/18/2019 Accession Number: [id number] / [id number] Procedure: XR - Chest 1 View X-Ray CPT Code: 66279 Final Report FULL RESULT: EXAM: CHEST RADIOGRAPHY EXAM DATE: 12/18/2019 09:26 PM. CLINICAL HISTORY: Chest pressure. COMPARISON: CHEST 2 VIEW 12/11/2019 9:33 AM. TECHNIQUE: 1 view. FINDINGS: Lungs/Pleura: Calcified left midlung granuloma again noted. The lungs are otherwise clear. No pleural effusion or pneumothorax. Mediastinum: Within exam limitations, the cardiomediastinal contour is normal. Other: None. IMPRESSION: No acute cardiopulmonary process. RADIA
[2019-12-18 21:59] LABS: AMPHETAMINE SCREEN,URINE NEGATIVE (NEGATIVE); BENZODIAZEPINES SCREEN, URINE NEGATIVE (NEGATIVE); COCAINE SCREEN URINE NEGATIVE (NEGATIVE); METHADONE SCREEN, URINE NEGATIVE (NEGATIVE); METHAMPHETAMINES SCREEN, URINE NEGATIVE (NEGATIVE); OPIATE SCREEN, URINE NEGATIVE (NEGATIVE); OXYCODONE SCREEN, URINE NEGATIVE (NEGATIVE); PROPOXYPHENE SCREEN, URINE NEGATIVE (NEGATIVE); TRICYCLIC ANTIDEPRESSANT,URINE NEGATIVE (NEGATIVE)
[2019-12-18 22:08] LABS: CLARITY,CSF CLEAR (CLEAR); COLOR,CSF COLORLESS (COLORLESS); CSF TUBE # CSF TUBE# 3; CSF XANTHOCHROMIA ABSENT (ABSENT); RED BLOOD CELL,CSF 0 /mm^3 (0-1); WHITE BLOOD CELL,CSF 2 /mm^3 (0-5)
[2019-12-18 22:12] LABS: CSF - GLUCOSE 55 mg/dL (45-70)
--- NOTE | 2019-12-18 23:15 | CT Report ---
Reason: headache Procedure Date: 12/18/2019 Accession Number: [id number] / [id number] Procedure: CT - HEAD WO CPT Code: Final Report FULL RESULT: EXAM: CT HEAD EXAM DATE: 12/18/2019 10:28 PM. CLINICAL HISTORY: Headache. COMPARISON: None. TECHNIQUE: Multiaxial CT images were obtained from the foramen magnum to the vertex. Reformats: Sagittal and coronal. IV contrast: None. In accordance with CT protocol optimization, one or more of the following dose reduction techniques were utilized for this exam: automated exposure control, adjustment of mA and/or KV based on patient size, or use of iterative reconstructive technique. FINDINGS: Parenchyma: No intraparenchymal hemorrhage. No evidence of mass, midline shift, or CT findings of infarction. Sheikh-white differentiation is distinct. Extraaxial Spaces: Normal for age. No subdural or epidural collections identified. Ventricles: Normal in size and position. Sinuses and Orbits: Imaged paranasal sinuses, orbits, and mastoids show no significant abnormality. Bones: No evidence of fracture or calvarial defect. Other: None. IMPRESSION: Normal head CT. No bleeding, mass-effect, or shift. RADIA
[2019-12-18 23:32] LABS: HCG UR QUAL NEGATIVE
[2019-12-18] MEDS ORDERED: KETOROLAC 30 MG/ML VIAL IVP STA (23:44)
[2019-12-19 00:07] VITALS: BP 106/67
== END 2019-12-19 00:28 | disposition home or self-care (01) ==
LOC: EDUNIT# → ED 20:08
DX: G44.89 Other headache syndrome (principal)
CPT/HCPCS: 36415; 62270; 70450; 71045; 80048; 80306; 80320; 81001; 81003; 81025; 82550; 82945; 84157; 84443; 84484; 85025; 85610; 85730; 87070; 87086; 87205; 87275; 87276; 89051; 93005

== ENCOUNTER 2019-12-21 08:00 | Outpatient (CLI) | payer OTHER ==
[2019-12-23 10:48] LABS: ANA SCREEN NEGATIVE (NEGATIVE)
== END 2019-12-21 23:59 | disposition home or self-care (01) ==
LOC: LAB.WCP 08:00
PROVIDERS: ATTEND Physician Assistant
DX: R53.83 Other fatigue (principal)
CPT/HCPCS: 36415; 85651; 86038; 86308

== ENCOUNTER 2019-12-21 18:09 | Emergency (ER) | payer OTHER ==
[2019-12-21 18:19] VITALS: BP 99/71
== END 2019-12-21 19:45 | disposition left against medical advice (07) ==
LOC: ED 18:09
DX: Z53.21 Procedure and treatment not carried out due to patient leaving prior to being seen by health care provider (principal); I49.8 Other specified cardiac arrhythmias
CPT/HCPCS: 36415; 71275; 80053; 83690; 84484; 85025; 93005; 99284; Q9967

== ENCOUNTER 2019-12-21 22:39 | Outpatient (CLI) | payer OTHER | END 2019-12-21 22:40 | disposition short-term general hospital (02) | LOC: EMS 22:39 | PROVIDERS: ATTEND Surgery | DX: R51 Headache (principal) | CPT/HCPCS: A0425; A0429 ==

== ENCOUNTER 2019-12-25 08:48 | Emergency (ER) | payer OTHER ==
--- NOTE | 2019-12-25 09:23 | ED Physician Documentation ---
PD HPI HEADACHE - Stated complaint Stated Complaint: HEADACHE/CP - Chief complaint Chief Complaint: Neuro - History obtained from History obtained from: Patient - History of Present Illness Timing - onset: How many months ago (over 1 month ago.) Timing - onset during: Rest, Light activity Timing - duration: Months (over a month) Timing - details: Constant (the past several days, worse with lying down. Not too bad with sitting up.), Waxing and waning (initially) Worst headache ever?: Worst headache ever? (has had headache for over a month, no noted injury. Associated symptoms of muscle aches diffusely and also chest pains, worse with breathing. Has noted feeling of heart rate going fast with light activity, up to 140s rate at times.) Location: Front Quality: Throbbing, Aching Associated symptoms: Nausea, Other (concurrent symptoms of myalgias, chest pains, tachycardic episodes, some with activity over the same timeframe.). No: Fever, Stiff neck, Weakness, Numbness Worsened by: Light Contributing factors: No: Hypertension, Recent illness, Trauma Similar symptoms before: Has not had sx before (new symptoms in the past month. Moved here last February, from [facility], had been active there with lots of outdoor activity.) Recently seen: Clinic (was seen by PCP few times and also here in ER recently. Has had blood tests including ESR, CARMINA, TSH, CBC, chemistries. Also ECHO, chest xray, recent chest CT-angio, and UA, flu test, and STD screen (due to lower abd pains at that time). No Dx as yet. Had LP done a week ago and has had some more consistent MARTINS since the procedure, but not worse with sitting up/standing. No fevers.), Emergency Dept Review of Systems Constitutional: reports: Fever, Myalgias, Fatigue. denies: Chills, Weight Loss Eyes: reports: Photophobia (mild). denies: Decreased vision Nose: reports: Sinus pressure / pain (frontal area, and headache had improved with initial antibiotics and green/yellow nasal drainage had cleared, but is returning back again this past week.). denies: Rhinorrhea / runny nose, Congestion Throat: denies: Dental pain / toothache, Oral lesions / sores, Sore throat, Swollen tonsils Cardiac: reports: Palpitations. denies: Chest pain / pressure, Pedal edema, Calf pain Respiratory: reports: Dyspnea, Wheezing. denies: Cough, Hemoptysis GI: reports: Abdominal Pain (cramping intermittent), Nausea. denies: Vomiting, Diarrhea Skin: denies: Rash, Lesions Neurologic: reports: Generalized weakness, Near syncope, Syncope. denies: Focal weakness, Numbness, Confused, Altered mental status Psychiatric: denies: Depressed, Anxiety, Insomnia Endocrine: denies: Weight loss Immunocompromised: denies: Immunocompromised PD PAST MEDICAL HISTORY - Past Medical History Past Medical History: No Cardiovascular: None Respiratory: None Neuro: None Endocrine/Autoimmune: None Derm: None - Past Surgical History Past Surgical History: No - Present Medications Home Medications: Ambulatory Orders Medication Instructions Recorded Confirmed Ondansetron Odt [Zofran] 4 mg TL Q6H PRN #10 tablet 03/11/19 Ondansetron Odt [Zofran] 4 mg TL Q6H PRN #10 tablet 12/11/19 Sucralfate [Carafate] 1 gm PO ACHS #60 tablet 12/11/19 Amitriptyline HCl 25 mg PO QPM #20 tablet 12/25/19 Azithromycin [Zithromax] 0 mg PO DAILY #6 tablet 12/25/19 Hydrocodone/Acetaminophen [[place] 1 each PO Q6H PRN #15 tablet 12/25/19 5-325 Tablet] Ondansetron Odt [Zofran] 4 mg TL Q6H PRN #10 tablet 12/25/19 dexAMETHasone [Decadron] 4 mg PO DAILY #5 tablet 12/25/19 - Allergies Allergies/Adverse Reactions: Allergies Allergy/AdvReac Type Severity Reaction Status Date / Time No Known Drug Allergies Allergy Verified 12/25/19 08:58 - Social History Does the pt smoke?: No Smoking Status: Never smoker Does the pt drink ETOH?: Yes Does the pt have substance abuse?: No - Immunizations Immunizations are current?: Yes PD ED PE NORMAL - Vitals Vital signs reviewed: Yes - General General: Alert and oriented X 3, Well developed/nourished. No: No acute distress (does appear somewhat uncomfortable due to headache. Frontal sinus tender to percussion. ) - HEENT HEENT: Atraumatic, PERRL, Ears normal, Moist mucous membranes, Pharynx benign - Neck Neck: Supple, no meningeal sign, No adenopathy - Cardiac Cardiac: RRR, No murmur - Respiratory Respiratory: Clear bilaterally, Other (no chestwall tenderness) - Abdomen Abdomen: Normal bowel sounds, Soft, Non tender, Non distended - Derm Derm: Normal color, Warm and dry - Neuro Neuro: Alert and oriented X 3, ice guard skating rink 2-12 intact, No motor deficit, No sensory deficit, Normal speech, Other Eye Opening: Spontaneous Motor: Obeys Commands Verbal: Oriented GCS Score: 15 Results - Vitals Vitals: Vital Signs - 24 hr 12/25/19 12/25/19 12/25/19 08:58 11:33 12:32 Temperature 36.6 C 36.9 C Heart Rate 88 75 84 Respiratory 14 18 14 Rate Blood Pressure 109/74 106/82 H 108/75 O2 Saturation 100 98 100 Oxygen O2 Source Room air - Labs Labs: Laboratory Tests 12/25/19 12/25/19 12/25/19 10:45 11:05 11:05 WBC 3.3 L RBC 3.98 L Hgb 12.1 Hct 36.2 L MCV 91.0 MCH 30.4 MCHC 33.4 RDW 12.5 Plt Count 180 MPV 9.9 Neut # (Auto) 1.8 Lymph # (Auto) 1.2 L [place] # (Auto) 0.3 Eos # (Auto) 0.0 Baso # (Auto) 0.0 Absolute Nucleated RBC 0.00 Nucleated RBC % 0.0 ESR Sodium 139 Potassium 3.5 Chloride 104 Carbon Dioxide 27 Anion Gap 8.0 BUN 5 L Creatinine 0.7 Estimated GFR (MDRD) 98 Glucose 93 Calcium 9.4 Total Bilirubin 1.3 H AST 11 ALT < 10 L Alkaline Phosphatase 33 L Total Protein 6.9 Albumin 4.2 Globulin 2.7 Albumin/Globulin Ratio 1.6 Lipase 33 Urine Color YELLOW Urine Clarity CLEAR Urine pH 7.0 Ur Specific [place] 1.010 Urine Protein NEGATIVE Urine Glucose (UA) NEGATIVE Urine Ketones 15 H Urine Occult Blood NEGATIVE Urine Nitrite NEGATIVE Urine Bilirubin NEGATIVE Urine Urobilinogen 0.2 (NORMAL) Ur Leukocyte Esterase NEGATIVE Ur Microscopic Review NOT INDICATED Urine Culture Comments NOT INDICATED 12/25/19 11:05 WBC RBC Hgb Hct MCV MCH MCHC RDW Plt Count MPV Neut # (Auto) Lymph # (Auto) [place] # (Auto) Eos # (Auto) Baso # (Auto) Absolute Nucleated RBC Nucleated RBC % ESR 4 Sodium Potassium Chloride Carbon Dioxide Anion Gap BUN Creatinine Estimated GFR (MDRD) Glucose Calcium Total Bilirubin AST ALT Alkaline Phosphatase Total Protein Albumin Globulin Albumin/Globulin Ratio Lipase Urine Color Urine Clarity Urine pH Ur Specific [place] Urine Protein Urine Glucose (UA) Urine Ketones Urine Occult Blood Urine Nitrite Urine Bilirubin Urine Urobilinogen Ur Leukocyte Esterase Ur Microscopic Review Urine Culture Comments PD MEDICAL DECISION MAKING - ED course Complexity details: reviewed old records (has had recent eval of labs, Chest CT- A, ECHO, CXR, and LP, with MRI brain planned soon. I did not see need for imaging. ), re-evaluated patient (feeling moderately improved with fluids/meds, down to a level similar to prior to LP. ), considered differential (has had headache prior to the LP. Could be some worse due to post-LP but is not that severe, so will try fluids and meds and not go right to blood patch, ashok since a good part of her headache sounds sinus-like. ) Departure - Departure Disposition: 01 Home, Self Care Clinical Impression: Headache Qualifiers: Headache type: unspecified Headache chronicity pattern: acute headache Intractability: intractable Qualified Code(s): R51 - Headache Dyspnea Qualifiers: Dyspnea type: dyspnea on exertion Qualified Code(s): R06.09 - Other forms of dyspnea Sinusitis Qualifiers: Sinusitis location: frontal Chronicity: acute Recurrence: recurrent Qualified Code(s): J01.11 - Acute recurrent frontal sinusitis Condition: Stable Record reviewed to determine appropriate education?: Yes Instructions: ED Dyspnea Shortness of Breath, ED Cephalgia Unspecified Follow-Up: Caitlyn Corral PA [Primary Care Provider] - Prescriptions: Amitriptyline HCl 25 mg PO QPM #20 tablet Azithromycin [Zithromax] 0 mg PO DAILY #6 tablet dexAMETHasone [Decadron] 4 mg PO DAILY #5 tablet Hydrocodone/Acetaminophen [[place] 5-325 Tablet] 1 each PO Q6H PRN #15 tablet PRN Reason: Pain Ondansetron Odt [Zofran] 4 mg TL Q6H PRN #10 tablet PRN Reason: Nausea / Vomiting Comments: Stay well-hydrated. Ondansetron if needed for nausea. Use Tylenol or ibuprofen if needed for pains and mild headaches. Add hydrocodone if needed for worse headache or pains. Decadron steroid daily for 5 more days. This would help with inflammation of the sinuses and would also help for migraine type processes and even the post LP headache. Hydration will help a lot to. Zithromax as directed for potential recurrent sinus infection. Amitriptyline nightly for the next couple of weeks to try to help with the headache as this sounds like it may be a migraine type or chronic daily headache process and that medicine can help with those. Follow-up with your primary care early next week, call for an appointment. Return if not improving reasonably well over the next few days. Discharge Date/Time: 12/25/19 12:43
[2019-12-25] MEDS ORDERED: SODIUM CHLORIDE 0.9% 1,000 ML IV ONE (10:09)
[2019-12-25] MEDS ORDERED: KETOROLAC 30 MG/ML VIAL IVP STA (10:10)
[2019-12-25] MEDS ORDERED: METOCLOPRAMIDE 10 MG/2 ML VIAL IVP STA (10:10)
[2019-12-25] MEDS ORDERED: DEXAMETHASONE 10 MG/ML VIAL IVP STA (10:13)
[2019-12-25 11:12] LABS: BASOPHILS % (AUTO) 0.6 %; EOSINOPHILS % (AUTO) 0.6 %; HGB - HEMOGLOBIN 12.1 g/dL (12.0-16.0); LYMPHOCYTES # (AUTO) 1.2 10^3/uL (1.5-3.5); LYMPHOCYTES % (AUTO) 35.4 %; MEAN CORPUSCULAR HEMOGLOBIN 30.4 pg (27.0-31.0); MEAN CORPUSCULAR HGB CONC 33.4 g/dL (32.0-36.0); MEAN PLATELET VOLUME 9.9 fL (7.9-10.8); MONOCYTES # (AUTO) 0.3 10^3/uL (0.0-1.0); MONOCYTES % (AUTO) 7.6 %; NEUTROPHILS # (AUTO) 1.8 10^3/uL (1.5-6.6); NEUTROPHILS % (AUTO) 55.8 %; PLT - PLATELET COUNT 180 10^3/uL (130-450); RED BLOOD COUNT 3.98 10^6/uL (4.20-5.40); RED CELL DISTRIBUTION WIDTH 12.5 % (12.0-15.0); WHITE BLOOD COUNT 3.3 x10^3/uL (4.8-10.8)
[2019-12-25 11:21] LABS: BILIRUBIN,URINE NEGATIVE (NEGATIVE); GLUCOSE, URINE (UA) NEGATIVE (NEGATIVE); KETONES,URINE (UA) 15 mg/dL (NEGATIVE); LEUKOCYTE ESTERASE, URINE NEGATIVE (NEGATIVE); NITRITE,URINE NEGATIVE (NEGATIVE); OCCULT BLOOD,URINE NEGATIVE (NEGATIVE); PROTEIN,URINE NEGATIVE (NEGATIVE); UROBILINOGEN,URINE 0.2 (NORMAL) E.U./dL (NORMAL)
[2019-12-25 11:22] LABS: CLARITY,URINE CLEAR (CLEAR)
[2019-12-25 11:25] LABS: ALBUMIN 4.2 g/dL (3.2-5.5); ALBUMIN/GLOBULIN RATIO 1.6 (1.0-2.2); ALKALINE PHOSPHATASE 33 IU/L (42-121); ALT ALANINE AMINOTRANSFERASE < 10 IU/L (10-60); AST ASPARTATE AMINOTRANSFERASE 11 IU/L (10-42); BILIRUBIN,TOTAL 1.3 mg/dL (0.2-1.0); BUN - BLOOD UREA NITROGEN 5 mg/dL (6-20); CALCIUM 9.4 mg/dL (8.5-10.3); CARBON DIOXIDE - CO2 27 mmol/L (21-32); CHLORIDE 104 mmol/L (101-111); CREATININE 0.7 mg/dL (0.4-1.0); GFR - MDRD 98 (>89); GLUCOSE 93 mg/dL (70-100); LIPASE 33 U/L (22-51); SODIUM 139 mmol/L (135-145); TOTAL PROTEIN 6.9 g/dL (6.7-8.2)
[2019-12-25 12:33] VITALS: BP 108/75
== END 2019-12-25 12:43 | disposition home or self-care (01) ==
LOC: ED 08:48
DX: J01.11 Acute recurrent frontal sinusitis (principal); R51 Headache; R06.09 Other forms of dyspnea
CPT/HCPCS: 36415; 80053; 81003; 83690; 85025; 85651; 86617; 96361; 96374; 96375; 99284; J2765; 81001; 87086

== ENCOUNTER 2019-12-31 08:00 | Outpatient (CLI) | payer OTHER ==
[2020-01-01 22:08] LABS: CANDIDA GROUP DNA NEGATIVE (NEGATIVE); CANDIDA KRUSEI DNA NEGATIVE (NEGATIVE); TRICHOMONAS VAGINALIS DNA NEGATIVE (NEGATIVE)
[2020-01-01 23:01] LABS: TRICHOMONAS VAGINALIS DNA NEGATIVE (NEGATIVE)
== END 2019-12-31 23:59 | disposition home or self-care (01) ==
LOC: LAB.R 08:00
PROVIDERS: ATTEND Obstetrics & Gynecology
DX: N89.8 Other specified noninflammatory disorders of vagina (principal)
CPT/HCPCS: 87491; 87591; 87661; 87801

== ENCOUNTER 2020-01-03 08:31 | Outpatient (CLI) | payer OTHER ==
--- NOTE | 2020-01-07 10:39 | Ultrasound Report ---
Reason: HX OF OVARIAN CYST Procedure Date: 01/03/2020 Accession Number: [id number] / [id number] Procedure: US - Pelvic w/Transvaginal CPT Code: Final Report FULL RESULT: EXAM: PELVIC ULTRASOUND EXAM DATE: 01/03/2020 10:00 AM. CLINICAL HISTORY: History of ovarian cyst. COMPARISON: PELVIC W/TRANSVAGINAL 03/23/2019 10:19 PM. TECHNIQUE: Realtime transabdominal pelvic scan performed to identify the uterus and adnexa and as an overview of other pelvic structures, followed by transvaginal scan to provide greater detail of the uterus and adnexa, with static image documentation. FINDINGS: Uterus: 8.1 x 4.4 x 5.5 cm, volume 103 cc. Retroverted position. Uterus appears somewhat heterogeneous with prominent vascular plexus. Masses: No discrete masses detected. Endometrium: 11 mm. Normal. Cervix: Small amount of fluid is seen within the endocervix, and there is a small focus of vascularity demonstrated on color Doppler without visualization of a convincing polyp or polypoid vascular stalk. Right Ovary: 2.8 x 2.3 x 2.1 cm, volume 7.1 cc. There is a 1.8 x 1.5 x 1.4 cm cyst which demonstrates vascularity by color Doppler near the edge which is within an apparent septation. See images 71 and 72. Left Ovary: 2.6 x 1.5 x 1.9 cm, volume 4.1 cc. Normal echotexture and blood flow. Free Fluid: A small to moderate amount of free fluid is seen within the pelvis, greater than expected for physiologic. Other: None. IMPRESSION: The right adnexal cyst demonstrates a septation with vascularity by color Doppler, favor cystic mass. The septation appears thin and very small. Given that vascular flow is potentially artifactual and no solid nodule is visualized, imaging options for clarification include short term sonographic interval surveillance with transvaginal and transabdominal Doppler or further characterization by pelvic MRI with and without contrast. Question of vascularity in the region of the endocervix with a small amount of fluid seen, no polyp is directly visualized, and the focus of Doppler signal is not suggestive of a polyp stalk. Recommend short interval followup with pelvic ultrasound for clarification versus direct visualization/tissue sampling. Redemonstration of pelvic fluid greater in quantity and expected for physiologic and increased compared to March 2020. RADIA
== END 2020-01-03 08:32 | disposition home or self-care (01) ==
LOC: DI 08:31
PROVIDERS: ATTEND Obstetrics & Gynecology
DX: N83.201 Unspecified ovarian cyst, right side (principal)
CPT/HCPCS: 76830; 76856

== ENCOUNTER 2020-02-12 07:40 | Outpatient (CLI) | payer OTHER ==
[2020-02-12 12:57] LABS: BILIRUBIN,URINE NEGATIVE (NEGATIVE); GLUCOSE, URINE (UA) NEGATIVE (NEGATIVE); KETONES,URINE (UA) NEGATIVE (NEGATIVE); LEUKOCYTE ESTERASE, URINE NEGATIVE (NEGATIVE); NITRITE,URINE NEGATIVE (NEGATIVE); OCCULT BLOOD,URINE NEGATIVE (NEGATIVE); PROTEIN,URINE NEGATIVE (NEGATIVE); UROBILINOGEN,URINE 0.2 (NORMAL) E.U./dL (NORMAL)
[2020-02-12 12:58] LABS: CLARITY,URINE CLEAR (CLEAR)
[2020-02-12 13:00] LABS: CALCIUM 8.9 mg/dL (8.5-10.3); CREATININE 0.6 mg/dL (0.4-1.0)
[2020-02-12 13:18] LABS: RBC,URINE 0-5 /HPF (0-5); SQUAMOUS EPITHELIAL CELL,UR RARE Squamous (<= Few)
[2020-02-12 13:19] LABS: BACTERIA,URINE Rare /HPF (None Seen)
== END 2020-02-12 23:59 | disposition home or self-care (01) ==
LOC: LAB.WCP 07:40
PROVIDERS: ATTEND Physician Assistant
DX: R30.0 Dysuria (principal); Z87.42 Personal history of other diseases of the female genital tract; N94.6 Dysmenorrhea, unspecified
CPT/HCPCS: 36415; 80048; 81001; 82670; 83001; 84144

== ENCOUNTER 2020-02-17 09:06 | Outpatient (CLI) | payer OTHER ==
--- NOTE | 2020-02-17 10:22 | Ultrasound Report ---
Reason: HX OF OVARIAN CYST Procedure Date: 02/17/2020 Accession Number: [id number] / [id number] Procedure: US - Pelvic w/Transvaginal CPT Code: Final Report FULL RESULT: EXAM: PELVIC ULTRASOUND EXAM DATE: 02/17/2020 09:38 AM. CLINICAL HISTORY: HX OF OVARIAN CYST. COMPARISON: PELVIC W/TRANSVAGINAL 01/03/2020 9:29 AM. TECHNIQUE: Realtime transabdominal pelvic scan performed to identify the uterus and adnexa and as an overview of other pelvic structures, followed by transvaginal scan to provide greater detail of the uterus and adnexa, with static image documentation. FINDINGS: Uterus: 7.9 x 4.2 x 5.9 cm, volume 103 cc. Anteverted position. Normal overall size and echotexture. Masses: None. Endometrium: 5.0 mm. Normal. Cervix: Unremarkable. Right Ovary: 1.8 x 3.6 x 1.9 cm, volume 6.4 cc. Normal echotexture and blood flow. There are normal follicles. Previously identified septated cyst not seen. Left Ovary: 1.6 x 2.9 x 1.7 cm, volume 4.1 cc. Normal echotexture and blood flow. There are normal follicles. Free Fluid: None. Other: None. IMPRESSION: 1. Uterus and ovaries are unremarkable. 2. Previously identified septated right ovarian cyst is not seen. RADIA
== END 2020-02-17 09:07 | disposition home or self-care (01) ==
LOC: DI 09:06
PROVIDERS: ATTEND Obstetrics & Gynecology
DX: Z87.42 Personal history of other diseases of the female genital tract (principal); R22.2 Localized swelling, mass and lump, trunk
CPT/HCPCS: 76604; 76830; 76856

== ENCOUNTER 2020-02-17 09:25 | Outpatient (CLI) | payer OTHER ==
--- NOTE | 2020-02-17 10:26 | Ultrasound Report ---
Reason: MASS,CHEST WALL Procedure Date: 02/17/2020 Accession Number: [id number] / [id number] Procedure: US - Chest CPT Code: Final Report FULL RESULT: EXAM: US CHEST EXAM DATE: 02/17/2020 10:00 AM. CLINICAL HISTORY: Palpable lump at the right chest for 3 months. COMPARISON: CHEST ANGIO 12/21/2019 8:12 AM. TECHNIQUE: Real-time duplex ultrasound evaluation of the area of concern at the right anterior chest to the right of midline. Static image documentation. FINDINGS: No focal soft tissue abnormality is seen at the area of concern. This appears to overlie the distal aspect of a rib. IMPRESSION: 1. No focal soft tissue abnormality is seen at the area of concern. This appears to overlie the distal aspect of a rib. Given the location of the area of concern, consider correlation with diagnostic breast imaging. [facility]
== END 2020-02-17 09:26 | disposition home or self-care (01) ==
LOC: DI 09:25
PROVIDERS: ATTEND Family Medicine
DX: R22.2 Localized swelling, mass and lump, trunk (principal)
CPT/HCPCS: 76604

== ENCOUNTER 2020-03-04 11:56 | Outpatient (CLI) | payer OTHER ==
--- NOTE | 2020-03-04 21:56 | XRAY Report ---
Reason: LOW BACK PAIN, BILAT KNEE PAIN BUT WORSE ON RIGHT Procedure Date: 03/04/2020 Accession Number: [id number] / [id number] Procedure: XR - Knee 3 View BILAT CPT Code: Final Report FULL RESULT: EXAMS: 1. Right Knee Radiography 2. Left Knee Radiography EXAM DATE:03/04/2020 12:39 PM. CLINICAL HISTORY:LOW BACK PAIN, BILAT KNEE PAIN BUT WORSE ON RIGHT. COMPARISON: None. TECHNIQUE: 2 views each. FINDINGS: Right Knee: Bones: Normal. No fractures or bone lesions. Joints: Trace effusion. No subluxations. Soft Tissues: Normal. No soft tissue swelling. Left Knee: Bones: Normal. No fractures or bone lesions. Joints: Normal. No effusion. No subluxations. Soft Tissues: Normal. No soft tissue swelling. IMPRESSION: 1. No fracture or significant degenerative changes. 2. Trace joint effusion on the right. [facility]
--- NOTE | 2020-03-04 22:00 | XRAY Report ---
Reason: LOW BACK PAIN, BILAT KNEE PAIN WORSE ON RIGHT Procedure Date: 03/04/2020 Accession Number: [id number] / [id number] Procedure: XR - Pelvis 1 View CPT Code: Final Report FULL RESULT: EXAM: PELVIS RADIOGRAPHY EXAM DATE: 03/04/2020 12:39 PM. CLINICAL HISTORY: LOW BACK PAIN, BILAT KNEE PAIN WORSE ON RIGHT. COMPARISON: KNEE 3 VIEW BILAT 03/04/2020 12:00 PM. TECHNIQUE: 1 view. FINDINGS: Bones: Normal. No fracture or bone lesion. Joints: The visualized hip, pubis symphysis, and sacroiliac joints are preserved. No subluxation. Soft Tissues: Normal. No soft tissue swelling. IMPRESSION: Normal pelvis radiography. [facility]
== END 2020-03-04 11:57 | disposition home or self-care (01) ==
LOC: DI 11:56
PROVIDERS: ATTEND Internal Medicine Rheumatology
DX: M54.5 Low back pain (principal); M25.561 Pain in right knee; M25.562 Pain in left knee; N91.5 Oligomenorrhea, unspecified
CPT/HCPCS: 36415; 72170; 83001; 83002; 84144

== ENCOUNTER 2020-03-04 12:22 | Outpatient (CLI) | payer OTHER ==
[2020-03-04 13:34] LABS: FOLLICLE STIMULATING HORMONE 4.03 mIU/mL
[2020-03-04 13:35] LABS: LUTEINIZING HORMONE 7.32 mIU/mL
== END 2020-03-04 12:23 | disposition home or self-care (01) ==
LOC: LAB 12:22
PROVIDERS: ATTEND Obstetrics & Gynecology
DX: N91.5 Oligomenorrhea, unspecified (principal)
CPT/HCPCS: 36415; 83001; 83002; 84144

== ENCOUNTER 2020-03-30 17:01 | Outpatient (CLI) | payer OTHER ==
--- NOTE | 2020-03-31 09:22 | MRI Report ---
Reason: RIGHT KNEE PAIN Procedure Date: 03/30/2020 Accession Number: [id number] / [id number] Procedure: MRI - Knee RT W/O CPT Code: Final Report FULL RESULT: EXAM: RIGHT KNEE MRI WITHOUT CONTRAST EXAM DATE: 03/30/2020 06:04 PM. CLINICAL HISTORY: Right knee pain. COMPARISON: KNEE 3 VIEW BILAT 03/04/2020 12:00 PM. TECHNIQUE: Multiplanar, multisequence T1-weighted and fluid-sensitive sequences of the knee without contrast. Other: None. FINDINGS: Bones and Articular Cartilage: Mild subchondral marrow at the medial aspect of the medial tibial plateau. No acute fracture or bone lesions. Articular cartilage is within normal limits. No subluxations. Medial Meniscus: Radial tear at the medial meniscal body. Extensive radial oblique tear at the posterior horn. Lateral Meniscus: The lateral meniscus is intact. Cruciate Ligaments: The anterior and posterior cruciate ligaments are intact. Collateral Ligaments: The medial collateral and lateral collateral ligamentous structures are intact. Tendons: The quadriceps, patellar, semimembranosus, and popliteus tendons are unremarkable. Musculature: No edema or fatty atrophy. Other: Very small joint effusion. Very small popliteal cyst. No loose bodies. The medial and lateral retinacula are intact. The subcutaneous tissues and fat pads are unremarkable. IMPRESSION: 1. Medial meniscal tears. 2. Very small joint effusion and very small popliteal cyst. 3. Mild subchondral marrow edema at the medial aspect of the medial tibial plateau which is most likely reactive. [facility]
== END 2020-03-30 17:02 | disposition home or self-care (01) ==
LOC: DI 17:01
PROVIDERS: ATTEND Internal Medicine Rheumatology
DX: S83.241A Other tear of medial meniscus, current injury, right knee, initial encounter (principal); M25.461 Effusion, right knee; M71.21 Synovial cyst of popliteal space [Baker], right knee

== ENCOUNTER 2020-04-01 08:00 | Outpatient (CLI) | payer OTHER ==
[2020-04-01 14:09] LABS: HB2 TOTAL 14.2 g/dL; HEMOGLOBIN A1C 0.44 g/dL
== END 2020-04-01 23:59 | disposition home or self-care (01) ==
LOC: LAB.WCP 08:00
PROVIDERS: ATTEND Advanced Practice Midwife
DX: Z00.00 Encounter for general adult medical examination without abnormal findings (principal)
CPT/HCPCS: 36415; 83036; 86769

== ENCOUNTER 2020-09-11 09:07 | Outpatient (CLI) | payer OTHER ==
[2020-09-11] MEDS ORDERED: IOVERSOL 320 100 ML VIAL IVP ONE ×2 (09:20→09:39)
--- NOTE | 2020-09-11 10:37 | CT Report ---
PROCEDURE: CHEST W INDICATIONS: CHEST WALL TENDERNESS CONTRAST: IV CONTRAST: Optiray 320 ml: 100 PO CONTRAST: *NO PO CONTRAST TECHNIQUE: After the administration of intravenous contrast, 5 mm thick sections acquired from the pulmonary api stephie to the posterior costophrenic angles. 7 mm thick coronal MIP reformats were acquired. For radia tion dose reduction, the following was used: automated exposure control, adjustment of mA and/or kV according to patient size. COMPARISON: CT angiogram chest 12/21/2019. FINDINGS: Image quality: Excellent. Lungs and pleura: There is a dense calcified nodule redemonstrated within the left upper lobe measur ing up to 1.2 cm consistent with a calcified granuloma. No acute consolidation. There is minimal depe ndent atelectasis bilaterally. No pleural effusions or pneumothorax. Central and peripheral airways are patent and normal in caliber. Mediastinum: Heart size is normal. No pericardial effusion. There is irregular shaped soft tissue in anterior mediastinum compatible residual thymus. No mediastinal or hilar adenopathy by size criter ia. Thoracic aorta and central pulmonary arteries are normal in size. Esophagus is normal in calibe r. No hiatal hernia. Bones and chest wall: No suspicious bony lesions. No vertebral body compression fractures. No axil bonnie or supraclavicular adenopathy by size criteria. Thyroid gland demonstrates no discrete nodules. There is a cutaneous marker in the right anterior chest wall in the area of palpable abnormality. No discrete subjacent mass or fluid collection. The underlying right sternoclavicular joint demonstrate s minimal degeneration with minimal osteophytosis of the clavicular head. No definite asymmetric caps ular hypertrophy. No discrete bony erosions. Abdomen: Visualized upper abdomen redemonstrates an oval hypodense lesion in the left hepatic lobe m easuring up to 1.4 cm with attenuation values higher than expected for a simple cyst. Findings not de finitely identified on the prior study although comparison is limited due to differences in phase of enhancement. IMPRESSION: 1. No mass or fluid collection demonstrated in the area of palpable abnormality in the right anterior chest wall. The underlying right sternoclavicular joint demonstrates minimal degeneration without ca psular hypertrophy or definite evidence of inflammatory arthropathy. 2. Indeterminate hypodense lesion within the left hepatic lobe. Given patient's age, a benign process such as a hemangioma or adenoma are favored but other neoplastic etiologies cannot be excluded. Furt her evaluation may be obtained with a liver protocol MRI if clinically indicated. Reviewed by: Brian Roberts MD on 09/11/2020 10:36 AM PST Approved by: Brian Roberts MD on 09/11/2020 10:36 AM [facility] Station ID: [id number]
== END 2020-09-11 09:08 | disposition home or self-care (01) ==
LOC: DI 09:07
PROVIDERS: ATTEND Physician Assistant
DX: R07.89 Other chest pain (principal); K76.9 Liver disease, unspecified
CPT/HCPCS: 71260; Q9967

== ENCOUNTER 2021-04-25 10:01 | Outpatient (CLI) | payer OTHER ==
--- NOTE | 2021-04-25 13:46 | XRAY Report ---
PROCEDURE: Cervical Spine Complete INDICATIONS: NECK PX TECHNIQUE: 4 view(s) of the cervical spine were acquired. COMPARISON: None. FINDINGS: Bones: No fractures or dislocations to the C7-T1 level. The lateral masses of C1 appear intact on t he odontoid view. No suspicious bony lesions. There is straightening of normal cervical curvature. There is right foraminal narrowing at C6-7. Soft tissues: No prevertebral soft tissue swelling. IMPRESSION: Foraminal narrowing noted at what appears to be C6-7. While this could be projectional, if further evaluation is indicated, MRI cervical spine without contrast is recommended. Reviewed by: Niya Spain MD on 04/25/2021 1:44 PM PDT Approved by: Niya Spain MD on 04/25/2021 1:44 PM PDT Station ID: [id number]
--- NOTE | 2021-04-25 13:47 | XRAY Report ---
PROCEDURE: Lumbar Spine 2 View INDICATIONS: LOW BACK PX TECHNIQUE: 2 views of the lumbar spine were acquired. COMPARISON: None. FINDINGS: Bones: 5 [id number] vertebrae are present. There is trace anterolisthesis of L1 on L2, L2 on L 3, L3 on L4, L4 on L5 and L5 on S1. Mild disc and foraminal narrowing is noted at L5-S1. No vertebra l body compression fractures. No suspicious bony lesions. Soft tissues: Overlying bowel gas pattern is normal. No suspicious soft tissue calcifications. IMPRESSION: L5-S1 disc and foraminal narrowing as above. Reviewed by: Niya Spain MD on 04/25/2021 1:45 PM PDT Approved by: Niya Spain MD on 04/25/2021 1:45 PM PDT Station ID: [id number]
== END 2021-04-25 10:02 | disposition home or self-care (01) ==
LOC: DI.N 10:01
PROVIDERS: ATTEND Nurse Practitioner Family
DX: M48.07 Spinal stenosis, lumbosacral region (principal); M54.2 Cervicalgia

== ENCOUNTER 2021-04-25 10:38 | Outpatient (CLI) | payer OTHER ==
[2021-04-25 11:37] LABS: BASOPHILS % (AUTO) 0.4 %; EOSINOPHILS # (AUTO) 0.1 10^3/uL (0.0-0.7); EOSINOPHILS % (AUTO) 2.3 %; HGB - HEMOGLOBIN 13.8 g/dL (12.0-16.0); LYMPHOCYTES # (AUTO) 1.5 10^3/uL (1.5-3.5); LYMPHOCYTES % (AUTO) 28.2 %; MEAN CORPUSCULAR HEMOGLOBIN 31.4 pg (27.0-31.0); MEAN CORPUSCULAR HGB CONC 34.5 g/dL (32.0-36.0); MEAN CORPUSCULAR VOLUME 91.1 fL (81.0-99.0); MEAN PLATELET VOLUME 10.7 fL (7.9-10.8); MONOCYTES # (AUTO) 0.4 10^3/uL (0.0-1.0); MONOCYTES % (AUTO) 8.2 %; NEUTROPHILS # (AUTO) 3.1 10^3/uL (1.5-6.6); NEUTROPHILS % (AUTO) 60.7 %; PLT - PLATELET COUNT 232 10^3/uL (130-450); RED BLOOD COUNT 4.39 10^6/uL (4.20-5.40); RED CELL DISTRIBUTION WIDTH 12.2 % (12.0-15.0); WHITE BLOOD COUNT 5.2 x10^3/uL (4.8-10.8)
[2021-04-25 11:56] LABS: ALBUMIN 4.4 g/dL (3.2-5.5); ALBUMIN/GLOBULIN RATIO 1.5 (1.0-2.2); ALKALINE PHOSPHATASE 54 IU/L (42-121); ALT ALANINE AMINOTRANSFERASE 14 IU/L (10-60); AST ASPARTATE AMINOTRANSFERASE 17 IU/L (10-42); BUN - BLOOD UREA NITROGEN 8 mg/dL (6-20); CALCIUM 9.8 mg/dL (8.5-10.3); CARBON DIOXIDE - CO2 29 mmol/L (21-32); CHLORIDE 101 mmol/L (101-111); CHOL/HDL RATIO 4.1 (<4.4); CHOLESTEROL 215 mg/dL; CREATININE 0.6 mg/dL (0.4-1.0); GFR - MDRD 117 (>89); GLUCOSE 84 mg/dL (70-100); HDL CHOLESTEROL 52 mg/dL; LDL CHOLESTEROL,CALCULATED 149 mg/dL; LDL/HDL RATIO 2.9 (<4.4); POTASSIUM 4.1 mmol/L (3.5-5.0); SODIUM 137 mmol/L (135-145); TOTAL PROTEIN 7.4 g/dL (6.7-8.2); TRIGLYCERIDES 68 mg/dL; VLDL CHOLESTEROL 14 mg/dL
[2021-04-25 12:05] LABS: THYROID STIMULATING HORMONE 2.06 uIU/mL (0.34-5.60)
[2021-04-25 12:12] LABS: ESTIMATED AVERAGE GLUCOSE 88 mg/dL (70-100); HEMOGLOBIN A1c% 4.7 % (4.27-6.07)
== END 2021-04-25 23:59 | disposition home or self-care (01) ==
LOC: LAB.N 10:38
PROVIDERS: ATTEND Nurse Practitioner Family
DX: E04.1 Nontoxic single thyroid nodule (principal); E66.9 Obesity, unspecified; R53.83 Other fatigue
CPT/HCPCS: 36415; 80053; 80061; 83036; 83721; 84443; 85025

== ENCOUNTER 2021-11-26 13:11 | Outpatient (CLI) | payer OTHER ==
--- NOTE | 2021-11-26 17:09 | Ultrasound Report ---
PROCEDURE: Head or Neck Soft Tissue INDICATIONS: THYROID NODULE TECHNIQUE: Real-time scanning was performed of the thyroid gland, with image documentation. COMPARISON: Correlation is made with prior CT, 09/11/2020. FINDINGS: Right: Thyroid lobe measures 4.7 x 1.6 x 2.1 cm. Left: Thyroid lobe measures 5.6 x 1.1 x 1.8 cm. Isthmus: 3 mm thick. Nodule number: 1 Location: Right mid thyroid Size: 0.3 x 0.2 cm. Composition: Solid Echogenicity: Hypoechoic Shape: wider than tall. Margins: Smooth Echogenic foci: None. Total points: 4 ACR TI-RADS category: 4 Nodule number: 2 Location: Left mid thyroid Size: 0.5 x 0.3 x 0.3 cm. Composition: Cystic Echogenicity: Anechoic Shape: wider than tall. Margins: Smooth Echogenic foci: Comet-tail artifact is seen. Total points: 0 ACR TI-RADS category: 1 IMPRESSION: There is a right-sided thyroid nodule and a left-sided cyst. By published criteria, no specific imaging follow-up is recommended. ACR TI-RADS definitions and recommendations: TI-RADS 1 (benign): 0 points. FNA not needed. TI-RADS 2 (not suspicious): 2 points. FNA not needed. TI-RADS 3 (mildly suspicious): 3 points. "FNA if 2.5 cm or larger, follow up if 1.5 cm or larger (at 1, 3, and 5 years). TI-RADS 4 (moderately suspicious): 4-6 points. "FNA if 1.5 cm or larger, follow up if 1 cm or larger (at 1, 2, 3, and 5 years). TI-RADS 5 (highly suspicious): 7 points or more. "FNA if 1 cm or larger, follow up if 0.5 cm or larger (every year for 5 years). Reviewed by: Siva Valle MD on 11/26/2021 4:08 PM [place] Approved by: Siva Valle MD on 11/26/2021 4:08 PM [facility] Station ID: [id number]
== END 2021-11-26 13:12 | disposition home or self-care (01) ==
LOC: DI 13:11
PROVIDERS: ATTEND Nurse Practitioner
DX: E04.2 Nontoxic multinodular goiter (principal)

== ENCOUNTER 2022-06-04 10:51 | Outpatient (CLI) | payer OTHER ==
[2022-06-04 17:39] LABS: BASOPHILS % (AUTO) 0.5 %; EOSINOPHILS # (AUTO) 0.1 10^3/uL (0.0-0.7); EOSINOPHILS % (AUTO) 1.8 %; HCT - HEMATOCRIT 40.2 % (37.0-47.0); HGB - HEMOGLOBIN 13.4 g/dL (12.0-16.0); LYMPHOCYTES # (AUTO) 1.7 10^3/uL (1.5-3.5); LYMPHOCYTES % (AUTO) 28.8 %; MEAN CORPUSCULAR HEMOGLOBIN 30.7 pg (27.0-31.0); MEAN CORPUSCULAR HGB CONC 33.3 g/dL (32.0-36.0); MONOCYTES # (AUTO) 0.5 10^3/uL (0.0-1.0); MONOCYTES % (AUTO) 7.7 %; NEUTROPHILS # (AUTO) 3.6 10^3/uL (1.5-6.6); NEUTROPHILS % (AUTO) 60.9 %; PLT - PLATELET COUNT 230 10^3/uL (130-450); RED BLOOD COUNT 4.37 10^6/uL (4.20-5.40); RED CELL DISTRIBUTION WIDTH 12.6 % (12.0-15.0)
[2022-06-04 18:04] LABS: ALBUMIN 4.4 g/dL (3.2-5.5); ALBUMIN/GLOBULIN RATIO 1.5 (1.0-2.2); ALKALINE PHOSPHATASE 49 IU/L (42-121); ALT ALANINE AMINOTRANSFERASE 22 IU/L (10-60); AST ASPARTATE AMINOTRANSFERASE 17 IU/L (10-42); BILIRUBIN,TOTAL 0.7 mg/dL (0.2-1.0); BUN - BLOOD UREA NITROGEN 9 mg/dL (6-20); CALCIUM 9.4 mg/dL (8.5-10.3); CARBON DIOXIDE - CO2 27 mmol/L (21-32); CHLORIDE 105 mmol/L (101-111); CHOL/HDL RATIO 4.6 (<4.4); CHOLESTEROL 219 mg/dL; CREATININE 0.7 mg/dL (0.4-1.0); GFR - MDRD 97 (>89); GLUCOSE 94 mg/dL (70-100); HDL CHOLESTEROL 48 mg/dL; LDL CHOLESTEROL,CALCULATED 150 mg/dL; LDL/HDL RATIO 3.1 (<4.4); SODIUM 137 mmol/L (135-145); TOTAL PROTEIN 7.4 g/dL (6.7-8.2); TRIGLYCERIDES 105 mg/dL; VLDL CHOLESTEROL 21 mg/dL
[2022-06-04 18:06] LABS: THYROID STIMULATING HORMONE 1.68 uIU/mL (0.34-5.60)
[2022-06-04 18:08] LABS: FREE T4 (FREE THYROXINE) 0.94 ng/dL (0.58-1.64)
[2022-06-04 18:34] LABS: FOLLICLE STIMULATING HORMONE 4.83 mIU/mL
== END 2022-06-04 10:52 | disposition home or self-care (01) ==
LOC: LAB.N 10:51
PROVIDERS: ATTEND Nurse Practitioner
DX: R53.83 Other fatigue (principal); Z13.220 Encounter for screening for lipoid disorders; L68.0 Hirsutism; E04.1 Nontoxic single thyroid nodule
CPT/HCPCS: 36415; 80053; 80061; 82626; 83001; 83721; 84403; 84439; 84443; 85025

== ENCOUNTER 2022-09-07 17:13 | Outpatient (CLI) | payer OTHER ==
[2022-09-07 17:34] LABS: BASOPHILS % (AUTO) 0.4 %; EOSINOPHILS # (AUTO) 0.1 10^3/uL (0.0-0.7); EOSINOPHILS % (AUTO) 1.3 %; HCT - HEMATOCRIT 40.8 % (37.0-47.0); HGB - HEMOGLOBIN 13.7 g/dL (12.0-16.0); LYMPHOCYTES # (AUTO) 2.2 10^3/uL (1.5-3.5); LYMPHOCYTES % (AUTO) 22.7 %; MEAN CORPUSCULAR HEMOGLOBIN 30.4 pg (27.0-31.0); MEAN CORPUSCULAR HGB CONC 33.6 g/dL (32.0-36.0); MEAN CORPUSCULAR VOLUME 90.7 fL (81.0-99.0); MEAN PLATELET VOLUME 9.9 fL (7.9-10.8); MONOCYTES # (AUTO) 0.7 10^3/uL (0.0-1.0); MONOCYTES % (AUTO) 7.1 %; NEUTROPHILS # (AUTO) 6.6 10^3/uL (1.5-6.6); NEUTROPHILS % (AUTO) 68.1 %; PLT - PLATELET COUNT 288 10^3/uL (130-450); RED CELL DISTRIBUTION WIDTH 12.5 % (12.0-15.0); WHITE BLOOD COUNT 9.7 x10^3/uL (4.8-10.8)
[2022-09-07 17:41] LABS: ALBUMIN 4.2 g/dL (3.2-5.5); ALBUMIN/GLOBULIN RATIO 1.3 (1.0-2.2); ALKALINE PHOSPHATASE 64 IU/L (42-121); ALT ALANINE AMINOTRANSFERASE 30 IU/L (10-60); AST ASPARTATE AMINOTRANSFERASE 21 IU/L (10-42); BILIRUBIN,TOTAL 0.6 mg/dL (0.2-1.0); BUN - BLOOD UREA NITROGEN 12 mg/dL (6-20); CALCIUM 9.7 mg/dL (8.5-10.3); CARBON DIOXIDE - CO2 28 mmol/L (21-32); CHLORIDE 100 mmol/L (101-111); CREATININE 0.7 mg/dL (0.4-1.0); GFR - MDRD 97 (>89); GLUCOSE 92 mg/dL (70-100); SODIUM 135 mmol/L (135-145); TOTAL PROTEIN 7.5 g/dL (6.7-8.2)
[2022-09-07 17:52] LABS: INFECTIOUS MONONUCLEOSIS NEGATIVE (Negative)
[2022-09-07 18:10] LABS: CRP - C-REACTIVE PROTEIN < 1.0 mg/dL (0-1.0)
--- NOTE | 2022-09-07 21:03 | XRAY Report ---
PROCEDURE: Chest 2 View X-Ray INDICATIONS: SHORTNESS OF BREATH TECHNIQUE: 2 views of the chest were acquired. COMPARISON: Several priors, including 12/09/2019, 12/18/2019, 03/04/2020. Correlation is also made with [facility] CT, 12/21/2019. FINDINGS: Within the left midlung, there is again seen a focal density, which is unchanged compared to priors a nd attributed to a calcified granuloma. Smaller calcified granulomas are seen elsewhere. No superimpo sed infiltrates are seen. No pneumothorax or pleural effusions are seen. The cardiac and mediastinal silhouettes are within normal limits. No focal bony abnormality can be seen. No overlying soft tissue abnormality is seen. No postoperative changes are seen. IMPRESSION: No acute abnormality is seen. No focal infiltrates are seen. Calcified granulomas are again seen. Reviewed by: Siva Valle MD on 09/07/2022 8:02 PM [facility] Approved by: Siva Valle MD on 09/07/2022 8:02 PM [facility] Station ID: [id number]
== END 2022-09-07 17:14 | disposition home or self-care (01) ==
LOC: DI 17:13
PROVIDERS: ATTEND Nurse Practitioner
DX: R06.02 Shortness of breath (principal); M94.0 Chondrocostal junction syndrome [Tietze]
CPT/HCPCS: 36415; 80053; 85025; 85651; 86140; 86308; 86645

== ENCOUNTER 2023-06-01 09:06 | Outpatient (CLI) | payer OTHER ==
[2023-06-01 19:11] LABS: BILIRUBIN,URINE NEGATIVE (NEGATIVE); GLUCOSE, URINE (UA) NEGATIVE (NEGATIVE); KETONES,URINE (UA) NEGATIVE (NEGATIVE); LEUKOCYTE ESTERASE, URINE NEGATIVE (NEGATIVE); NITRITE,URINE NEGATIVE (NEGATIVE); OCCULT BLOOD,URINE NEGATIVE (NEGATIVE); PH,URINE 6.5 PH (5.0-7.5); PROTEIN,URINE NEGATIVE (NEGATIVE); UROBILINOGEN,URINE 0.2 (NORMAL) E.U./dL (NORMAL)
[2023-06-01 19:12] LABS: CLARITY,URINE CLEAR (CLEAR)
[2023-06-01 19:32] LABS: BACTERIA,URINE Rare /HPF (None Seen); RBC,URINE None Seen /HPF (0-5); SQUAMOUS EPITHELIAL CELL,UR MANY Squamous (<= Few); WBC,URINE 0-3 /HPF (0-5)
== END 2023-06-01 09:07 | disposition home or self-care (01) ==
LOC: LAB.N 09:06
PROVIDERS: ATTEND Nurse Practitioner
DX: R31.9 Hematuria, unspecified (principal); E04.1 Nontoxic single thyroid nodule; F41.1 Generalized anxiety disorder; R53.83 Other fatigue
CPT/HCPCS: 36415; 81001; 82533; 82607; 84439; 84443; 87086

== ENCOUNTER 2023-06-08 10:46 | Emergency (ER) | payer OTHER ==
[2023-06-08 11:25] LABS: BASOPHILS % (AUTO) 0.6 %; EOSINOPHILS # (AUTO) 0.1 10^3/uL (0.0-0.7); HCT - HEMATOCRIT 40.2 % (37.0-47.0); HGB - HEMOGLOBIN 13.3 g/dL (12.0-16.0); LYMPHOCYTES # (AUTO) 1.6 10^3/uL (1.5-3.5); LYMPHOCYTES % (AUTO) 22.7 %; MEAN CORPUSCULAR HGB CONC 33.1 g/dL (32.0-36.0); MEAN CORPUSCULAR VOLUME 90.5 fL (81.0-99.0); MEAN PLATELET VOLUME 9.7 fL (7.9-10.8); MONOCYTES # (AUTO) 0.5 10^3/uL (0.0-1.0); MONOCYTES % (AUTO) 6.4 %; PLT - PLATELET COUNT 258 10^3/uL (130-450); RED BLOOD COUNT 4.44 10^6/uL (4.20-5.40); RED CELL DISTRIBUTION WIDTH 12.6 % (12.0-15.0); WHITE BLOOD COUNT 7.2 x10^3/uL (4.8-10.8)
[2023-06-08 11:44] LABS: ALBUMIN 4.4 g/dL (3.2-5.5); ALBUMIN/GLOBULIN RATIO 1.5 (1.0-2.2); BILIRUBIN,TOTAL 0.6 mg/dL (0.2-1.0); CALCIUM 9.6 mg/dL (8.5-10.3); CREATININE 0.7 mg/dL (0.6-1.3); TOTAL PROTEIN 7.3 g/dL (6.4-8.9)
[2023-06-08 12:15] LABS: BILIRUBIN,URINE NEGATIVE (NEGATIVE); GLUCOSE, URINE (UA) NEGATIVE (NEGATIVE); KETONES,URINE (UA) NEGATIVE (NEGATIVE); LEUKOCYTE ESTERASE, URINE NEGATIVE (NEGATIVE); NITRITE,URINE NEGATIVE (NEGATIVE); OCCULT BLOOD,URINE NEGATIVE (NEGATIVE); PH,URINE 7.5 PH (5.0-7.5); PROTEIN,URINE NEGATIVE (NEGATIVE); UROBILINOGEN,URINE 0.2 (NORMAL) E.U./dL (NORMAL)
[2023-06-08 12:19] LABS: CLARITY,URINE CLEAR (CLEAR); HCG UR QUAL NEGATIVE
--- NOTE | 2023-06-08 13:31 | ED Physician Documentation ---
PD HPI ABD PAIN - Stated complaint Stated Complaint: ABD PX, NAUSEA - Chief complaint Chief Complaint: Abd Pain - History obtained from History obtained from: Patient - Additional information Additional information: 32-year-old female presents with right upper quadrant abdominal pain as well as nausea but no vomiting for the last 2 days. She feels somewhat bloated and also has urinary urgency, denies any dysuria or frequency, no hematuria, no lower abdominal pain or flank pain. Pain is not worse with p.o. intake though she has not eaten anything today. She has not had a fever or chills, no chest pain or difficulty breathing. She Has not attempted any medication for this. No history of gallstones or abdominal surgeries. Review of Systems Constitutional: reports: Reviewed and negative Cardiac: reports: Reviewed and negative Respiratory: reports: Reviewed and negative GI: reports: Abdominal Pain, Abdominal Swelling, Nausea. denies: Vomiting, Constipation, Diarrhea, Hematemesis : denies: Dysuria, Frequency, Hesitancy, Unable to Void Skin: reports: Reviewed and negative Musculoskeletal: reports: Reviewed and negative PD PAST MEDICAL HISTORY - Past Medical History Past Medical History: No Cardiovascular: None Respiratory: None Neuro: None Endocrine/Autoimmune: None Derm: None - Past Surgical History Past Surgical History: No - Present Medications Home Medications: Ambulatory Orders Medication Instructions Recorded Confirmed Ondansetron Odt [Zofran] 4 mg TL Q6H PRN #10 tablet 03/11/19 Ondansetron Odt [Zofran] 4 mg TL Q6H PRN #10 tablet 12/11/19 Sucralfate [Carafate] 1 gm PO ACHS #60 tablet 12/11/19 Amitriptyline HCl 25 mg PO QPM #20 tablet 12/25/19 Azithromycin [Zithromax] 0 mg PO DAILY #6 tablet 12/25/19 Hydrocodone/Acetaminophen [Elizabeth 1 each PO Q6H PRN #15 tablet 12/25/19 5-325 Tablet] Ondansetron Odt [Zofran] 4 mg TL Q6H PRN #10 tablet 12/25/19 dexAMETHasone [Decadron] 4 mg PO DAILY #5 tablet 12/25/19 ONDANSETRON ODT Prepack 2 [ZOFRAN 4 mg TL Q6H #10 tablet 06/08/23 ODT Prepack 2] - Allergies Allergies/Adverse Reactions: Allergies Allergy/AdvReac Type Severity Reaction Status Date / Time No Known Drug Allergies Allergy Verified 06/08/23 12:59 - Social History Does the pt smoke?: No Smoking Status: Never smoker Does the pt drink ETOH?: Yes Does the pt have substance abuse?: No - Immunizations Immunizations are current?: Yes - POLST Patient has POLST: No PD ED PE NORMAL - Vitals Vital signs reviewed: Yes - General General: Alert and oriented X 3, No acute distress, Well developed/nourished - HEENT HEENT: Atraumatic, Pharynx benign - Neck Neck: Supple, no meningeal sign, No JVD - Cardiac Cardiac: RRR, No murmur - Respiratory Respiratory: No respiratory distress, Clear bilaterally - Abdomen Abdomen: Normal bowel sounds, Soft, Non tender, Non distended, No organomegaly - Back Back: No CVA TTP - Derm Derm: Normal color, Warm and dry, No rash - Extremities Extremities: No deformity, No tenderness to palpate, Normal ROM s pain, No edema - Neuro Neuro: Alert and oriented X 3 Eye Opening: Spontaneous Motor: Obeys Commands Verbal: Oriented GCS Score: 15 Results - Vitals Vitals: Vital Signs - 24 hr 06/08/23 06/08/23 06/08/23 10:53 12:55 13:54 Temperature 37.1 C Heart Rate 82 76 83 Respiratory 20 18 18 Rate Blood Pressure 144/91 H 129/87 H 145/90 H O2 Saturation 100 100 100 Oxygen O2 Source Room air - Labs Labs: Laboratory Tests 06/08/23 06/08/23 06/08/23 11:00 11:00 11:20 WBC 7.2 RBC 4.44 Hgb 13.3 Hct 40.2 MCV 90.5 MCH 30.0 MCHC 33.1 RDW 12.6 Plt Count 258 MPV 9.7 Neut # (Auto) 5.0 Lymph # (Auto) 1.6 [place] # (Auto) 0.5 Eos # (Auto) 0.1 Baso # (Auto) 0.0 Absolute Nucleated RBC 0.00 Nucleated RBC % 0.0 Sodium Potassium Chloride Carbon Dioxide Anion Gap BUN Creatinine Estimated GFR (MDRD) Glucose Calcium Total Bilirubin AST ALT Alkaline Phosphatase Total Protein Albumin Globulin Albumin/Globulin Ratio Lipase Urine Color YELLOW Urine Clarity CLEAR Urine pH 7.5 Ur Specific Sheldon 1.010 Urine Protein NEGATIVE Urine Glucose (UA) NEGATIVE Urine Ketones NEGATIVE Urine Occult Blood NEGATIVE Urine Nitrite NEGATIVE Urine Bilirubin NEGATIVE Urine Urobilinogen 0.2 (NORMAL) Ur Leukocyte Esterase NEGATIVE Ur Microscopic Review NOT INDICATED Urine Culture Comments NOT INDICATED Urine HCG, Qual NEGATIVE 06/08/23 11:20 WBC RBC Hgb Hct MCV MCH MCHC RDW Plt Count MPV Neut # (Auto) Lymph # (Auto) [place] # (Auto) Eos # (Auto) Baso # (Auto) Absolute Nucleated RBC Nucleated RBC % Sodium 137 Potassium 4.0 Chloride 106 Carbon Dioxide 29 Anion Gap 2.0 L BUN 7 Creatinine 0.7 Estimated GFR (MDRD) 96 Glucose 99 Calcium 9.6 Total Bilirubin 0.6 AST 14 ALT 18 Alkaline Phosphatase 63 Total Protein 7.3 Albumin 4.4 Globulin 2.9 Albumin/Globulin Ratio 1.5 Lipase 23 Urine Color Urine Clarity Urine pH Ur Specific Sheldon Urine Protein Urine Glucose (UA) Urine Ketones Urine Occult Blood Urine Nitrite Urine Bilirubin Urine Urobilinogen Ur Leukocyte Esterase Ur Microscopic Review Urine Culture Comments Urine HCG, Qual - Rads (name of study) No standard instances Relevant Findings:: Final report received PD Medical Decision Making - ED course Complexity details: reviewed results, considered differential, d/w patient ED course: 32-year-old female presented with right upper quadrant abdominal pain as described in HPI. She is well-appearing on physical exam, stable vital signs, afebrile. She has no significant right upper quadrant pain on exam currently but there was concern for possible gallstones or cholecystitis, GERD, pancreatitis or other cause of her symptoms therefore we did obtain labs which were reviewed and are reassuring, she does not have leukocytosis, liver function and kidney function is normal. Her urinalysis is negative for signs of infection. Proceed with right upper quadrant ultrasound to rule out gallstones and her ultrasound is negative. Given reassuring ultrasound, labs and physical exam, I have lower suspicion for acute surgical abdomen at this time, her symptoms may be related to dyspepsia, gas, muscle pain, or other cause of abdominal pain. I discussed findings with patient and advised that she adhere to a clear liquid diet today, advance to bland diet tomorrow as tolerated and discussed return precautions if new or worsening symptoms. Departure - Departure Disposition: 01 Home, Self Care Clinical Impression: Upper abdominal pain of unknown etiology Condition: Good Instructions: ED Abdominal Pain Female Non-Specific Abdominal Pain Prescriptions: ONDANSETRON ODT Prepack 2 [ZOFRAN ODT Prepack 2] 4 mg TL Q6H #10 tablet Comments: Your labs and ultrasound are reassuring today and no specific cause of your abdominal pain was found. Try a clear liquid diet today and then you can advance your diet as tolerated but please adhere to a low fat and avoid spicy foods. I have prescribed you a nausea tablet to use as needed and you may use tylenol as well. If you develop a fever or worsening symptoms, return to the Er. Forms: PCP List Discharge Date/Time: 06/08/23 13:54
[2023-06-08 14:02] VITALS: BP 145/90
--- NOTE | 2023-06-08 14:18 | Ultrasound Report ---
PROCEDURE: Abdomen Limited INDICATIONS: RUQ pain, evaluate for gallstones/cholecystitis TECHNIQUE: Real-time focused scanning was performed of the abdomen, with image documentation. COMPARISONS: None. FINDINGS: Liver: Liver is normal in size and homogeneous in echotexture. Gallbladder: Unremarkable. Biliary ducts: Intrahepatic bile ducts are non-dilated. Extrahepatic bile duct caliber measures 2.3 mm. Normal is 6-7 mm or less in diameter, or 10 mm or less post-cholecystectomy. Pancreas: Visualized portions of the pancreas are sonographically normal. Right kidney: Normal in size and echotexture. Right kidney measures 11.1 cm long. No hydronephrosis or nephrolithiasis. No solid masses. No complex renal cystic lesions which require follow-up. Aorta: Visualized aorta is normal in caliber at less than 3 cm. IVC: Intrahepatic inferior vena cava is patent. Miscellaneous: No free abdominal fluid. IMPRESSION: Normal abdominal ultrasound. No acute abnormality. Reviewed by: Kerwin Cheng on 06/08/2023 2:16 PM PDT Approved by: Kerwin Cheng on 06/08/2023 2:16 PM PDT Station ID: [id number]
== END 2023-06-08 13:54 | disposition home or self-care (01) ==
LOC: ED 10:46
DX: R10.11 Right upper quadrant pain (principal)
CPT/HCPCS: 36415; 80053; 81001; 81003; 81025; 83690; 85025; 87086; 99284

== ENCOUNTER 2023-07-06 16:01 | Outpatient (CLI) | payer OTHER ==
--- NOTE | 2023-07-06 18:33 | Ultrasound Report ---
PROCEDURE: Retroperitoneal INDICATIONS: FLANK PAIN TECHNIQUE: Real-time scanning was performed of the retroperitoneal organs, with image documentation. COMPARISON: 06/08/2023 FINDINGS: Kidneys: Kidneys are normal in size. Right kidney measures 11.1 cm long; left kidney measures 10.7 cm long. Right renal cortical thickness is 0.8 cm; left renal cortical thickness is 0.6 cm. No jennifer d masses, hydronephrosis, or nephrolithiasis. Bladder: Pre-void bladder volume is 800 mL. Post-void residual is 42 mL. Pre-void images demonstra te no intraluminal masses or stones. On pre-void images, both ureteral jets are noted with color Dop pler interrogation. (Of note, ureteral jets may not be detectable in up to 25% of cases due to insuf ficient differences in specific gravity between ureteral and bladder urine). Miscellaneous: No free abdominal fluid. IMPRESSION: Normal appearing kidneys, without hydronephrosis. Moderate postvoid residual, 42 cc. Reviewed by: Siva Valle MD on 07/06/2023 5:31 PM [facility] Approved by: Siva Valle MD on 07/06/2023 5:31 PM [facility] Station ID: [id number]
== END 2023-07-06 16:02 | disposition home or self-care (01) ==
LOC: DI 16:01
PROVIDERS: ATTEND Nurse Practitioner
DX: R10.9 Unspecified abdominal pain (principal)

== ENCOUNTER 2023-08-27 17:34 | Emergency (ER) | payer OTHER ==
[2023-08-27 18:24] LABS: BASOPHILS % (AUTO) 0.4 %; EOSINOPHILS # (AUTO) 0.1 10^3/uL (0.0-0.7); EOSINOPHILS % (AUTO) 1.3 %; HCT - HEMATOCRIT 40.2 % (37.0-47.0); HGB - HEMOGLOBIN 13.6 g/dL (12.0-16.0); LYMPHOCYTES # (AUTO) 2.3 10^3/uL (1.5-3.5); MEAN CORPUSCULAR HEMOGLOBIN 29.9 pg (27.0-31.0); MEAN CORPUSCULAR HGB CONC 33.8 g/dL (32.0-36.0); MEAN CORPUSCULAR VOLUME 88.4 fL (81.0-99.0); MEAN PLATELET VOLUME 9.8 fL (7.9-10.8); MONOCYTES # (AUTO) 0.6 10^3/uL (0.0-1.0); MONOCYTES % (AUTO) 6.4 %; NEUTROPHILS # (AUTO) 6.9 10^3/uL (1.5-6.6); NEUTROPHILS % (AUTO) 68.6 %; PLT - PLATELET COUNT 287 10^3/uL (130-450); RED BLOOD COUNT 4.55 10^6/uL (4.20-5.40); RED CELL DISTRIBUTION WIDTH 12.5 % (12.0-15.0); WHITE BLOOD COUNT 10.1 x10^3/uL (4.8-10.8)
[2023-08-27 18:44] LABS: ALBUMIN 4.6 g/dL (3.2-5.5); ALBUMIN/GLOBULIN RATIO 1.6 (1.0-2.2); BILIRUBIN,TOTAL 0.6 mg/dL (0.2-1.0); CALCIUM 9.7 mg/dL (8.5-10.3); CREATININE 0.7 mg/dL (0.6-1.3); POTASSIUM 3.6 mmol/L (3.5-4.5); TOTAL PROTEIN 7.5 g/dL (6.4-8.9)
[2023-08-27 18:48] LABS: TROPONIN I HIGH SENSITIVITY 2.3 ng/L (2.3-14.8)
[2023-08-27] MEDS ORDERED: KETOROLAC 30 MG/ML VIAL IM STA (18:56)
--- NOTE | 2023-08-27 19:01 | ED Physician Documentation ---
PD HPI CHEST PAIN - Stated complaint Stated Complaint: CHEST PX - Chief complaint Chief Complaint: Cardiac - History obtained from History obtained from: Patient - Additional information Additional information: 32-year-old female presents with right shoulder and to the right chest wall pain as well as several areas ofPain in her upper back. Symptoms have been present for 3 days. Pain is nonradiating but in all of these locations. She has not had a fever or chills, no difficulty breathing, no abdominal pain nausea vomiting or diarrhea. She has not had any cough or URI symptoms. She did note a temperature of around 99.2 at home but no fever. She has been taking ibuprofen without relief in her symptoms. She does sit at a desk most of the day, does not routinely do any back or chest opening exercises. She denies any recent surgeries or prolonged immobility, no lower extremity swelling or calf pain or fullness, no prior history of PE or DVT. She has no history of heart disease. Review of Systems Constitutional: reports: Reviewed and negative Nose: reports: Reviewed and negative Throat: reports: Reviewed and negative Cardiac: reports: Chest pain / pressure Respiratory: reports: Reviewed and negative GI: reports: Reviewed and negative : reports: Reviewed and negative Skin: reports: Reviewed and negative Musculoskeletal: reports: Back pain. denies: Neck pain, Extremity pain, Joint pain, Extremity swelling PD PAST MEDICAL HISTORY - Past Medical History Past Medical History: No Cardiovascular: None Respiratory: None Neuro: None Endocrine/Autoimmune: None Derm: None - Past Surgical History Past Surgical History: No - Present Medications Home Medications: Ambulatory Orders Medication Instructions Recorded Confirmed Ondansetron Odt [Zofran] 4 mg TL Q6H PRN #10 tablet 03/11/19 Ondansetron Odt [Zofran] 4 mg TL Q6H PRN #10 tablet 12/11/19 Sucralfate [Carafate] 1 gm PO ACHS #60 tablet 12/11/19 Amitriptyline HCl 25 mg PO QPM #20 tablet 12/25/19 Azithromycin [Zithromax] 0 mg PO DAILY #6 tablet 12/25/19 Hydrocodone/Acetaminophen [Calvin 1 each PO Q6H PRN #15 tablet 12/25/19 5-325 Tablet] Ondansetron Odt [Zofran] 4 mg TL Q6H PRN #10 tablet 12/25/19 dexAMETHasone [Decadron] 4 mg PO DAILY #5 tablet 12/25/19 ONDANSETRON ODT Prepack 2 [ZOFRAN 4 mg TL Q6H #10 tablet 06/08/23 ODT Prepack 2] Cyclobenzaprine [Flexeril] 5 mg PO TID PRN 6 Days #20 tablet 08/27/23 Ibuprofen [Motrin] 1 tablet PO Q8H PRN #30 tablet 08/27/23 - Allergies Allergies/Adverse Reactions: Allergies Allergy/AdvReac Type Severity Reaction Status Date / Time No Known Drug Allergies Allergy Verified 06/08/23 12:59 - Social History Does the pt smoke?: No Smoking Status: Never smoker Does the pt drink ETOH?: Yes Does the pt have substance abuse?: No - Immunizations Immunizations are current?: Yes - POLST Patient has POLST: No PD ED PE NORMAL - Vitals Vital signs reviewed: Yes - General General: Alert and oriented X 3, No acute distress, Well developed/nourished - HEENT HEENT: Atraumatic, Moist mucous membranes - Neck Neck: Supple, no meningeal sign, No adenopathy - Cardiac Cardiac: RRR, No murmur, No gallop, No rub, Strong equal pulses - Respiratory Respiratory: No respiratory distress, Clear bilaterally, Other (Right chest wall tenderness to palpation) - Abdomen Abdomen: Normal bowel sounds, Soft, Non tender, Non distended - Back Back: No spinal TTP, Other (ttp left thoracic paravertebral muscles and right parascapular muscles) - Derm Derm: Normal color, Warm and dry, No rash - Extremities Extremities: No deformity, No tenderness to palpate, Normal ROM s pain, No dolores ma, No calf tenderness / cord Results - Vitals Vitals: Vital Signs - 24 hr 08/27/23 08/27/23 17:40 18:52 Temperature 37.1 C Heart Rate 90 90 Respiratory 16 18 Rate Blood Pressure 137/93 H O2 Saturation 99 100 Oxygen O2 Source Room air - EKG (time done) No standard instances EKG releavant findings:: EKG personally interpreted by author of this note. Relevant findings are: Rate: Rate (enter#) (86) Rhythm: NSR Hudson: Normal Intervals: Normal NC QRS: Normal Ischemia: Normal ST segments Computer interpretation: Agree with computer - Labs Labs: Laboratory Tests 08/27/23 08/27/23 18:14 18:14 WBC 10.1 RBC 4.55 Hgb 13.6 Hct 40.2 MCV 88.4 MCH 29.9 MCHC 33.8 RDW 12.5 Plt Count 287 MPV 9.8 Neut # (Auto) 6.9 H Lymph # (Auto) 2.3 Riley # (Auto) 0.6 Eos # (Auto) 0.1 Baso # (Auto) 0.0 Absolute Nucleated RBC 0.00 Nucleated RBC % 0.0 Sodium 138 Potassium 3.6 Chloride 103 Carbon Dioxide 28 Anion Gap 7.0 BUN 13 Creatinine 0.7 Estimated GFR (MDRD) 96 Glucose 111 H Calcium 9.7 Total Bilirubin 0.6 AST 13 ALT 18 Alkaline Phosphatase 70 Troponin I High Sens 2.3 Total Protein 7.5 Albumin 4.6 Globulin 2.9 Albumin/Globulin Ratio 1.6 Lipase 32 - Rads (name of study) No standard instances Relevant Findings:: EMP independent interpretation of test PD Medical Decision Making - ED course Complexity details: reviewed results, re-evaluated patient, considered differential, d/w patient ED course: 32-year-old female presented with right chest wall right shoulder and upper back pain as described in HPI. Pain is reproducible, is not exertional, is nonradiating. She sustained no injuries to the area, denies any overuse injuries. Therefore differentials considered included musculoskeletal pain, ACS, PE, pneumonia, viral syndrome. We obtained EKG which shows no acute ischemic changes, her troponin is negative and given the duration of her symptoms and her low risk heart score, outpatient follow-up is recommended. PERC 9, no workup indicated. The patient has a reassuring chest x-ray per my read and she has reproducible pain with palpation of these areas and suspect this is muscle tension or soreness and recommended supportive measures including Tylenol, ibuprofen, and I have also given her a muscle relaxer. Recommended back in chest stretches that can be helpful. She should follow-up with her primary doctor within the next 1 to 2 weeks, return if new or worsening sympto ms. Departure - Departure Disposition: 01 Home, Self Care Clinical Impression: Chest wall pain Condition: Good Instructions: ED Chest Pain NonCardiac Prescriptions: Cyclobenzaprine [Flexeril] 5 mg PO TID PRN 6 Days #20 tablet PRN Reason: Spasms Ibuprofen [Motrin] 1 tablet PO Q8H PRN #30 tablet PRN Reason: PAIN &/OR FEVER Comments: Your labs, chest x-ray and EKG are reassuring. Your pain is reproducible and I suspect secondary to muscle strain and tension. You can utilize ibuprofen 800 mg 3 times a day as well as Tylenol, I also prescribed a short-term muscle relaxer to use as needed. You can use moist heat which may also help with your symptoms. I also recommend that you do chest opening and back stretches to help with your symptoms. Medications sent to [facility]. Forms: PCP List
--- NOTE | 2023-08-27 19:12 | XRAY Report ---
PROCEDURE: Chest 1 View X-Ray INDICATIONS: Chest pain TECHNIQUE: One view of the chest was acquired. COMPARISON: CXR 09/07/2022. FINDINGS: Surgical changes and devices: None. Lungs and pleura: No pleural effusions or pneumothorax. Left upper lobe calcified granuloma, unchan ged. Lungs are clear. Mediastinum: Mediastinal contours appear normal. Heart size is normal. Bones and chest wall: No suspicious bony lesions. Overlying soft tissues appear unremarkable. IMPRESSION: No acute cardiopulmonary process. Reviewed by: Charli Graham MD on 08/27/2023 7:11 PM PDT Approved by: Charli Graham MD on 08/27/2023 7:11 PM PDT Station ID: [id number]
[2023-08-27 19:35] VITALS: BP 118/95; O2SAT 98
== END 2023-08-27 19:30 | disposition home or self-care (01) ==
LOC: ED 17:34
DX: R07.89 Other chest pain (principal)
CPT/HCPCS: 36415; 80053; 83690; 84484; 85025; 93005; 96372; 99284

== ENCOUNTER 2023-09-07 12:23 | Outpatient (CLI) | payer OTHER ==
[2023-09-07 18:54] LABS: BASOPHILS % (AUTO) 0.5 %; EOSINOPHILS # (AUTO) 0.1 10^3/uL (0.0-0.7); EOSINOPHILS % (AUTO) 1.5 %; HCT - HEMATOCRIT 36.8 % (37.0-47.0); HGB - HEMOGLOBIN 12.6 g/dL (12.0-16.0); LYMPHOCYTES % (AUTO) 33.2 %; MEAN CORPUSCULAR HEMOGLOBIN 30.6 pg (27.0-31.0); MEAN CORPUSCULAR HGB CONC 34.2 g/dL (32.0-36.0); MEAN CORPUSCULAR VOLUME 89.3 fL (81.0-99.0); MEAN PLATELET VOLUME 11.4 fL (7.9-10.8); MONOCYTES # (AUTO) 0.4 10^3/uL (0.0-1.0); MONOCYTES % (AUTO) 6.8 %; NEUTROPHILS # (AUTO) 3.4 10^3/uL (1.5-6.6); NEUTROPHILS % (AUTO) 57.7 %; PLT - PLATELET COUNT 240 10^3/uL (130-450); RED BLOOD COUNT 4.12 10^6/uL (4.20-5.40); WHITE BLOOD COUNT 5.9 x10^3/uL (4.8-10.8)
[2023-09-07 19:00] LABS: INFECTIOUS MONONUCLEOSIS NEGATIVE (Negative)
[2023-09-07 19:13] LABS: CRP - C-REACTIVE PROTEIN 0.7 mg/dL (<0.5)
[2023-09-07 19:27] LABS: THYROID STIMULATING HORMONE 2.01 uIU/mL (0.34-5.60)
== END 2023-09-07 12:24 | disposition home or self-care (01) ==
LOC: LAB.N 12:23
PROVIDERS: ATTEND Nurse Practitioner
DX: R53.83 Other fatigue (principal); F32.A Depression, unspecified
CPT/HCPCS: 36415; 84443; 85025; 85651; 86140; 86308; 86645

== ENCOUNTER 2024-02-15 12:55 | Outpatient (CLI) | payer OTHER ==
[2024-02-15 18:54] LABS: BASOPHILS % (AUTO) 0.4 %; EOSINOPHILS # (AUTO) 0.1 10^3/uL (0.0-0.7); EOSINOPHILS % (AUTO) 1.4 %; HCT - HEMATOCRIT 39.6 % (37.0-47.0); HGB - HEMOGLOBIN 12.7 g/dL (12.0-16.0); LYMPHOCYTES # (AUTO) 1.9 10^3/uL (1.5-3.5); LYMPHOCYTES % (AUTO) 27.8 %; MEAN CORPUSCULAR HEMOGLOBIN 29.3 pg (27.0-31.0); MEAN CORPUSCULAR HGB CONC 32.1 g/dL (32.0-36.0); MEAN CORPUSCULAR VOLUME 91.5 fL (81.0-99.0); MEAN PLATELET VOLUME 11.3 fL (7.9-10.8); MONOCYTES # (AUTO) 0.5 10^3/uL (0.0-1.0); MONOCYTES % (AUTO) 6.8 %; NEUTROPHILS # (AUTO) 4.4 10^3/uL (1.5-6.6); NEUTROPHILS % (AUTO) 63.3 %; PLT - PLATELET COUNT 263 10^3/uL (130-450); RED BLOOD COUNT 4.33 10^6/uL (4.20-5.40); RED CELL DISTRIBUTION WIDTH 12.6 % (12.0-15.0); WHITE BLOOD COUNT 6.9 x10^3/uL (4.8-10.8)
[2024-02-15 19:07] LABS: ALBUMIN 4.1 g/dL (3.2-5.5); ALBUMIN/GLOBULIN RATIO 1.5 (1.0-2.2); BILIRUBIN,TOTAL 0.4 mg/dL (0.2-1.0); CREATININE 0.8 mg/dL (0.6-1.3); POTASSIUM 3.6 mmol/L (3.5-4.5); TOTAL PROTEIN 6.9 g/dL (6.4-8.9)
[2024-02-15 19:17] LABS: ESTIMATED AVERAGE GLUCOSE 94 mg/dL (70-100); HEMOGLOBIN A1c% 4.9 % (4.27-6.07)
[2024-02-15 19:18] LABS: THYROID STIMULATING HORMONE 1.92 uIU/mL (0.34-5.60)
[2024-02-15 20:08] LABS: BACTERIA,URINE Many /HPF (None Seen); BILIRUBIN,URINE NEGATIVE (NEGATIVE); CLARITY,URINE HAZY (CLEAR); GLUCOSE, URINE (UA) NEGATIVE (NEGATIVE); KETONES,URINE (UA) NEGATIVE (NEGATIVE); LEUKOCYTE ESTERASE, URINE NEGATIVE (NEGATIVE); NITRITE,URINE NEGATIVE (NEGATIVE); OCCULT BLOOD,URINE LARGE (NEGATIVE); PH,URINE 5.5 PH (5.0-7.5); PROTEIN,URINE NEGATIVE (NEGATIVE); RBC,URINE TNTC /HPF (0-5); SQUAMOUS EPITHELIAL CELL,UR MOD Squamous (<= Few); UROBILINOGEN,URINE 0.2 (NORMAL) E.U./dL (NORMAL)
== END 2024-02-15 12:56 | disposition home or self-care (01) ==
LOC: LAB.N 12:55
PROVIDERS: ATTEND Nurse Practitioner
DX: R10.11 Right upper quadrant pain (principal); R42 Dizziness and giddiness; R35.89 Other polyuria; E04.1 Nontoxic single thyroid nodule
CPT/HCPCS: 36415; 80053; 81001; 82150; 82607; 83036; 83690; 84439; 84443; 85025; 87086

== ENCOUNTER 2024-02-23 07:56 | Outpatient (CLI) | payer OTHER ==
--- NOTE | 2024-02-23 17:16 | Ultrasound Report ---
PROCEDURE: Soft Tissue Head or Neck INDICATIONS: THYROID NODULE TECHNIQUE: Real-time scanning was performed of the thyroid gland, with image documentation. COMPARISON: Thyroid ultrasound 11/26/2021 FINDINGS: Right: Thyroid lobe measures 5.5 x 1.5 x 1.8 cm, and is homogeneous in echotexture. Left: Thyroid lobe measures 4.7 x 1.3 x 1.5 cm, and is homogenous in echotexture. Isthmus: 3 cm thick. There are 2 subcentimeter foci demonstrating decreased echogenicity. There are unchanged. IMPRESSION: Unchanged subcentimeter thyroid foci. By imaging criteria no additional follow-up is rec ommended. ACR TI-RADS definitions and recommendations: TI-RADS 1 (benign): 0 points. FNA not needed. TI-RADS 2 (not suspicious): 2 points. FNA not needed. TI-RADS 3 (mildly suspicious): 3 points. "FNA if 2.5 cm or larger, follow up if 1.5 cm or larger (at 1, 3, and 5 years). TI-RADS 4 (moderately suspicious): 4-6 points. "FNA if 1.5 cm or larger, follow up if 1 cm or larger (at 1, 2, 3, and 5 years). TI-RADS 5 (highly suspicious): 7 points or more. "FNA if 1 cm or larger, follow up if 0.5 cm or larger (every year for 5 years). Reviewed by: Niya Spain MD on 02/23/2024 5:14 PM PDT Approved by: Niya Spain MD on 02/23/2024 5:14 PM PDT Station ID: [id number]
== END 2024-02-23 07:57 | disposition home or self-care (01) ==
LOC: DI 07:56
PROVIDERS: ATTEND Nurse Practitioner
DX: E04.2 Nontoxic multinodular goiter (principal)

== ENCOUNTER 2024-03-28 07:49 | Outpatient (CLI) | payer OTHER ==
--- NOTE | 2024-03-30 10:00 | Ultrasound Report ---
PROCEDURE: Abdomen Limited INDICATIONS: ABD PAIN TECHNIQUE: Real-time focused scanning was performed of the abdomen, with image documentation. COMPARISONS: Ultrasound abdomen 07/06/2023, at 523 FINDINGS: Liver: Liver is normal in size and homogeneous in echotexture. Gallbladder: No gallstones, sludge, wall thickening or pericholecystic edema. Biliary ducts: Intrahepatic bile ducts are non-dilated. Extrahepatic bile duct caliber measures 3 m m. Normal is 6-7 mm or less in diameter, or 10 mm or less post-cholecystectomy. Pancreas: Visualized portions of the pancreas are sonographically normal. Right kidney: Normal in size and echotexture. Right kidney measures 9.5 cm long. No hydronephrosis o r nephrolithiasis. No solid masses. No complex renal cystic lesions which require follow-up. IVC: Intrahepatic inferior vena cava is patent. Miscellaneous: No free abdominal fluid. IMPRESSION: Unremarkable abdominal ultrasound. Reviewed by: Niya Spain MD on 03/30/2024 9:59 AM PDT Approved by: Niya Spain MD on 03/30/2024 9:59 AM PDT Station ID: [id number]
== END 2024-03-28 07:50 | disposition home or self-care (01) ==
LOC: DI 07:49
PROVIDERS: ATTEND Nurse Practitioner
DX: R10.9 Unspecified abdominal pain (principal)